=== PATIENT | male | born 1975 | race African-American/Black ===

== ENCOUNTER 2017-08-11 18:32 | Emergency (ER) | payer BC ==
[2017-08-11 19:42] LABS: #Basophils 0.2 thou/uL (0.0-0.2); #Eosinphils 0.3 thou/uL (0.0-0.7); #Monocytes 0.5 thou/uL (0.11-0.59); #Neutrophils 5.1 thou/uL (1.40-6.50); %Basophils 2.5 % (0.0-1.0); %Eosinophils 2.8 % (0.0-10.0); %Lymphocytes 33.3 % (21.0-51.0); %Monocytes 5.9 % (0.0-10.0); Hematocrit 42.5 % (42.0-52.0); Mean Platelet Volume 8.6 fL (7.4-10.4); Red Blood Cell (RBC) Count 5.26 mill/uL (4.70-6.10); White Blood Cell (WBC) Count 9.1 thou/uL (4.8-10.8)
[2017-08-11 19:53] LABS: ALT (SGPT) 36 U/L (8-55); AST (SGOT) 20 U/L (5-34); Alkaline Phosphatase 84 U/L (40-150); Anion Gap 16 mmol/L (10-20); BUN (Urea Nitrogen) 13 mg/dL (8.9-20.6); Bilirubin, Total 0.3 mg/dL (0.2-1.2); Calc. Creatinine Clearance 0 mL/min (70-130); Calcium 8.9 mg/dL (7.8-10.44); Carbon Dioxide 18 mmol/L (22-29); Chloride 106 mmol/L (98-107); Estimated GFR-MDRD Greater than 90; Globulin 3.3 g/dL (2.4-3.5)
[2017-08-11] MEDS ORDERED: Insulin Regular 300 UNITS/3 ML VIAL ONE (20:03)
[2017-08-11 20:35] LABS: Bilirubin Negative (Negative); Blood, Urine Trace (Negative); Glucose, Urine (Dipstick) >=1000 mg/dL (Negative); Ketone, Urine 15 mg/dL (Negative); Nitrite Negative (Negative); Protein, Urine (Dipstick) Negative (Neg-Trace); Urobilinogen 0.2 mg/dL (0.2-1.0)
[2017-08-11 20:36] LABS: RBC/HPF 0-3 HPF (0-3)
[2017-08-11 20:37] LABS: Bacteria/HPF Rare-Few HPF (None Seen)
--- NOTE | 2017-08-11 20:52 | CT ---
CT ABDOMEN AND PELVIS WITHOUT IV CONTRAST: Indication: Left sided flank pain. FINDINGS: The lung bases are clear. There is severe fatty infiltration of the liver. Unopacified spleen, pancreas, and kidneys are normal appearing. No hydronephrosis is evident. No peter al or ureteral calculus is identified. Rectal and perirectal soft tissues are unremarkable. There are phleboliths within the left hemipelvi s. There is a normal appendix in the right lower quadrant. Unopacified large and small bowel appear within normal limits. No drainable fluid collection is evident. No definite acute osseous abnormality is noted. There is a fat containing umbilical hernia. IMPRESSION: 1. Fatty liver. 2. No renal or ureteral calculus. 3. Normal appendix. 4. Fat containing umbilical hernia. POS: [facility]
== END 2017-08-11 20:53 | disposition home or self-care (01) ==
LOC: SCSER 18:32
DX: M54.5 Low back pain (principal); K42.9 Umbilical hernia without obstruction or gangrene; K76.0 Fatty (change of) liver, not elsewhere classified; E11.65 Type 2 diabetes mellitus with hyperglycemia; I10 Essential (primary) hypertension
CPT/HCPCS: 36416; 74176; 80053; 81003; 81015; 85025; 96374; 36415-59; J1815

== ENCOUNTER 2017-09-09 19:56 | Emergency (ER) | payer BC ==
[2017-09-09] MEDS ORDERED: Diazepam 5 MG TAB ONE (20:58)
[2017-09-09 21:06] LABS: Bilirubin Negative (Negative); Blood, Urine Trace (Negative); Glucose, Urine (Dipstick) >=1000 mg/dL (Negative); Ketone, Urine Trace mg/dL (Negative); Nitrite Negative (Negative); Protein, Urine (Dipstick) Negative (Neg-Trace); Urobilinogen 0.2 mg/dL (0.2-1.0)
[2017-09-09 21:11] LABS: RBC/HPF 0-3 HPF (0-3); WBC/HPF 0-3 HPF (0-3)
[2017-09-09 21:12] LABS: Bacteria/HPF Rare-Few HPF (None Seen); Squamous Epithelial 0-3 HPF (0-3)
--- NOTE | 2017-09-09 22:09 | RAD ---
LUMBAR SPINE TWO VIEW 09/09/17 HISTORY: Pain. COMPARISON: None. FINDINGS: There are five nonribbearing lumbar type vertebrae. No acute fracture. No malalignment. No significan t listhesis. No significant degenerative disc space height loss. Mildly distended loop of gas filled sigmoid colon. IMPRESSION: No acute abnormality of the lumbar spine. No significant degenerative disease. POS: [facility]
== END 2017-09-09 23:08 | disposition home or self-care (01) ==
LOC: SCSER 19:56
DX: M62.830 Muscle spasm of back (principal); E78.5 Hyperlipidemia, unspecified; I10 Essential (primary) hypertension; E11.9 Type 2 diabetes mellitus without complications; Z79.4 Long term (current) use of insulin; Z79.899 Other long term (current) drug therapy
CPT/HCPCS: 36416; 72100; 81003; 81015

== ENCOUNTER 2017-12-31 00:44 | Emergency (ER) | payer BC | END 2017-12-31 02:06 | disposition home or self-care (01) | LOC: ERS 00:44 | DX: H60.91 Unspecified otitis externa, right ear (principal); E11.9 Type 2 diabetes mellitus without complications; E78.5 Hyperlipidemia, unspecified; I10 Essential (primary) hypertension | CPT/HCPCS: 99282 ==

== ENCOUNTER 2018-01-20 22:42 | Inpatient (IN) | payer BC ==
[2018-01-20 23:20] LABS: #Basophils 0.2 thou/uL (0.0-0.2); #Eosinphils 0.2 thou/uL (0.0-0.7); #Lymphocytes 2.7 thou/uL (1.20-3.40); #Monocytes 0.6 thou/uL (0.11-0.59); #Neutrophils 3.7 thou/uL (1.40-6.50); %Basophils 2.1 % (0.0-1.0); %Eosinophils 3.1 % (0.0-10.0); %Lymphocytes 36.8 % (21.0-51.0); %Monocytes 7.9 % (0.0-10.0); %Neutrophils 50.1 % (42.0-75.0); Hemoglobin 14.4 g/dL (14.0-18.0); Mean Corpuscular Hemoglobin 27.3 pg (27.0-31.0); Mean Corpuscular Volume 75.9 fl (80.0-94.0); Mean Platelet Volume 8.4 fL (7.4-10.4); Platelet Count 226 thou/uL (130-400); RBC Distribution Width 13.6 % (11.5-14.5); Red Blood Cell (RBC) Count 5.28 mill/uL (4.70-6.10); White Blood Cell (WBC) Count 7.3 thou/uL (4.8-10.8)
[2018-01-20 23:25] LABS: Base Excess-Venous -2.6 mmol/L (0 (+/- 2.5)); Bicarbonate (HCO3v) 20.3 mmol/L (1.0-85.0); CO2 Tension (PvCO2) 29.9 mmHg (41.0-51.0); Calcium, Ionized 1.01 mmol/L (1.12-1.32); Hemoglobin - Calc 15.7 g/dL (12.0-18.0); O2 Tension (PvO2) 89.8 mmHg (35.0-45.0); Potassium 5.3 mmol/L (3.4-4.7); T. Carbon Dioxide 21.2 mmol/L (1.0-85.0); vO2 Saturation-calc 97.4 % (94-98)
--- NOTE | 2018-01-20 23:44 | RAD ---
FRONTAL VIEW CHEST: 01/20/18 COMPARISON: 04/02/15 INDICATION: Altered mental status. FINDINGS: No evidence of consolidation, effusion or pneumothorax. The cardiac silhouette is accentuated by port able technique as well as shallow depth of inspiration. Chest is similar appearing to prior exam. IMPRESSION: Stable chest, without evidence of focal consolidation. POS: [facility]
[2018-01-20 23:50] LABS: CKMB 4.1 ng/mL (0-6.6); Troponin I Less than 0.010 ng/mL (< 0.028)
[2018-01-21 00:14] LABS: Albumin 4.2 g/dL (3.5-5.0)
[2018-01-21 00:15] LABS: Chloride 101 mmol/L (98-107); Potassium 5.7 mmol/L (3.5-5.1); Sodium 132 mmol/L (136-145)
[2018-01-21 00:17] LABS: Globulin 4.5 g/dL (2.4-3.5); Glucose 504 mg/dL (70-105); Protein, Total 8.7 g/dL (6.0-8.3)
[2018-01-21 00:18] LABS: Anion Gap 18 mmol/L (10-20); Bilirubin, Total 0.3 mg/dL (0.2-1.2); Carbon Dioxide 19 mmol/L (22-29)
[2018-01-21 00:19] LABS: Alkaline Phosphatase 101 U/L (40-150)
[2018-01-21 00:20] LABS: Calc. Creatinine Clearance 0 mL/min (70-130); Estimated GFR-MDRD 65
[2018-01-21 00:21] LABS: BUN (Urea Nitrogen) 13 mg/dL (8.9-20.6)
[2018-01-21 00:22] LABS: ALT (SGPT) 44 U/L (8-55); AST (SGOT) 58 U/L (5-34)
[2018-01-21 00:23] LABS: CK (CPK) 202 U/L (30-200); Lipase 93 U/L (8-78)
[2018-01-21 00:42] LABS: Bilirubin Negative (Negative); Blood, Urine Trace (Negative); Clarity CLEAR (Clear); Glucose, Urine (Dipstick) >=1000 mg/dL (Negative); Leukocyte Negative (Negative); Nitrite Negative (Negative); Protein, Urine (Dipstick) Negative (Neg-Trace); Specific Gravity, Urine 1.038 (1.002-1.036); Urobilinogen 0.2 mg/dL (0.2-1.0)
[2018-01-21 00:44] LABS: Bacteria/HPF None Seen HPF (None Seen); Hyaline Casts/LPF 0-3 HYALINE CAST LPF (0-3 Hyaline); Squamous Epithelial None Seen HPF (0-3); WBC/HPF None Seen HPF (0-3)
[2018-01-21] MEDS ORDERED: Insulin Regular 300 UNITS/3 ML VIAL ONE (00:52)
[2018-01-21] MEDS ORDERED: Nitroglycerin 0.4 MG TAB (25 Tab Bottle) PO PRN (01:19)
[2018-01-21] MEDS ORDERED: HYDROcodone/Acetaminophen 5/325 mg Tablet PO PRN (01:19)
[2018-01-21] MEDS ORDERED: Dextrose 5% in Water 1,000 ML IV PRN (01:19)
[2018-01-21] MEDS ORDERED: HumaLOG 300 UNITS/3 ML VIAL SC PRN (01:19)
[2018-01-21] MEDS ORDERED: Dextrose 50% Abboject 50 ML SYRINGE SLOW IVP PRN (01:19)
[2018-01-21] MEDS ORDERED: Ondansetron ODT 4 MG TAB PO PRN (01:19)
[2018-01-21] MEDS ORDERED: Calcium Carbonate 500 MG ChewTAB PO PRN (01:19)
[2018-01-21] MEDS ORDERED: Insulin Detemir 100 UNITS/ML 30 UNITS in Pre-Filled Syringe 1 EACH SC SCH ×2 (01:45→21:00)
[2018-01-21 02:16] LABS: #Basophils 0.1 thou/uL (0.0-0.2); #Eosinphils 0.2 thou/uL (0.0-0.7); #Lymphocytes 2.9 thou/uL (1.20-3.40); #Monocytes 0.7 thou/uL (0.11-0.59); #Neutrophils 3.3 thou/uL (1.40-6.50); %Basophils 1.4 % (0.0-1.0); %Eosinophils 3.1 % (0.0-10.0); %Lymphocytes 39.7 % (21.0-51.0); %Neutrophils 45.8 % (42.0-75.0); Hemoglobin 13.9 g/dL (14.0-18.0); Mean Corpuscular HGB CONC 36.5 g/dL (32.0-36.0); Mean Corpuscular Hemoglobin 27.6 pg (27.0-31.0); Mean Corpuscular Volume 75.7 fl (80.0-94.0); Mean Platelet Volume 8.3 fL (7.4-10.4); Platelet Count 213 thou/uL (130-400); RBC Distribution Width 13.6 % (11.5-14.5); Red Blood Cell (RBC) Count 5.03 mill/uL (4.70-6.10); White Blood Cell (WBC) Count 7.3 thou/uL (4.8-10.8)
--- NOTE | 2018-01-21 02:19 | HP ---
DATE OF ADMISSION: 01/21/2018 CHIEF COMPLAINT: Chest pain. HISTORY OF PRESENT ILLNESS: This is a 42-year-old -[place] male with a known history of type 2 diabetes mellitus. The patient has poor control of blood sugars at home. According to him, he wa s on Victoza in the past and his insurance has changed for the past 3 months and he is now on sliding scale insulin at home which according to him was not working well and always his sugars in 300s to 3 50s. Also, he has a very stressful job currently where he does not have any physical activity which according to him is contributing to the high blood sugars. Today morning, he noticed a sudden onset of chest pain going across his chest and he feels a lot of stress and he was worried about it and he came to the ER. His chest pain was not associated with any nausea. No radiation of the pain. It is more in the center of the chest. He denies having any history of gastric problems in the past or an y GERD. The patient is a nonsmoker. No history of alcohol. Currently, his blood sugars were in 500 s and he received 10 units of insulin in the ER and his sugars are still in 470s. He took metformin in the past, but because of the fear of renal failure which happened to his grandmother, he refused t o take metformin and also complaining of severe weight gain. PAST MEDICAL HISTORY: 1. Type 2 diabetes mellitus. 2. Hyperlipidemia. 3. Hypertension. PAST SURGICAL HISTORY: None. SOCIAL HISTORY: Patient is not a known smoker. No history of alcohol, no history of illicit drug us e. FAMILY HISTORY: No significant family history of coronary artery disease or any premature deaths in the family. ALLERGIES: SULFA AND MAGNESIUM. HOME MEDICATIONS: The patient is on simvastatin 10 mg p.o. daily and he is on sliding scale insulin, which is not listed here. REVIEW OF SYSTEMS: All 12 systems are reviewed with the patient thoroughly and found to be negative at this time. Systems reviewed are HEENT, CVS, PLUMBER'S ASSISTANT, respiratory, GI, , musculoskeletal, skin, inte gument, and psychiatric. The following complete review of systems was negative, unless otherwise men tioned in the HPI or below: Constitutional: Weight loss or gain, sense of well-being, ability to co nduct usual activities, exercise tolerance. Skin/Breast: Rash, itching, changes in hair growth or l oss, nail changes, breast lumps, tenderness, swelling, nipple discharge. Eyes: Vision, double visio n, tearing, blind spots, pain. ENT/Mouth: Headaches (location, time of onset, duration, precipitati ng factors), vertigo, lightheadedness, injury. Vision, double vision, tearing, blind spots, pain, nos e bleeding, colds, obstruction, discharge, dental difficulties, gingival bleeding, dentures, neck sti ffness, pain, tenderness, masses in thyroid or other areas. Cardiovascular: Precordial pain, subste rnal distress, palpitations, syncope, dyspnea on exertion, orthopnea, nocturnal paroxysmal dyspnea, e alka, cyanosis, hypertension, heart murmurs, varicosities, phlebitis, claudication. Respiratory: Pa in, shortness of breath, wheezing, stridor, cough, hemoptysis, fever or night sweats. Gastrointestin al: Poor appetite, dysphagia, indigestion, abdominal pain, heartburn, eructation, nausea, vomiting, hematemesis, jaundice, constipation, or diarrhea, abnormal stools (xenia-colored, tarry, bloody, greas y, foul smelling), flatulence, hemorrhoids, recent changes in bowel habits. Genitourinary: Urgency, frequency, dysuria, nocturia, hematuria, polyuria, oliguria, unusual (or change in) color of urine, stones, hesitancy, change in size of stream, dribbling, acute retention or incontinence, libido, pote ncy. Musculoskeletal: Pain, swelling, redness or heat of muscles or joints, limitation, of motion, muscular weakness, atrophy, cramps. Neurologic/Psychiatric: Convulsions, paralyses, tremor, incoordination, parasthesias, difficulties w ith memory of speech, sensory or motor disturbances, or muscular coordination (ataxia, tremor), emoti onal problems, anxiety, depression, previous psychiatric care, unusual perceptions, hallucinations. Allergy/Immunologic: Skin rash, anemia, bleeding tendency, polydipsia, polyuria, intolerance to heat or cold. PHYSICAL EXAMINATION: VITAL SIGNS: Blood pressures were 128/78, respiratory rate is 18, saturation is 96% on room air. GENERAL: The patient is moderately built and moderately nourished. He does not appear to be in acut e distress. CARDIOVASCULAR: S1, S2 normal. No murmurs, rubs or gallops. HEENT: Atraumatic, normocephalic. PERRLA. Extraocular movements were intact. NECK: No thyromegaly, no JVD, no lymphadenopathy was noted. LUNGS: Bilateral air entry was equal. No wheezing, no crackles. ABDOMEN: Soft, nontender, no guarding, no rebound tenderness. Bowel sounds normal. MUSCULOSKELETAL: No calf tenderness. No pedal edema. EXTREMITIES: No joint tenderness, no joint swelling. SKIN: No cyanosis, no erythema, no rash, no pallor. PSYCHIATRIC: No signs of suicidal ideation. No signs of maria m were noted. LABORATORY DATA: WBC 7.3, hemoglobin 14.4, hematocrit is 40.1, platelets 226. Sodium is 132, potass ium 5.7, chloride 101, blood sugar 504, BUN 13, creatinine 1.44. IMAGING: Chest x-ray was done showing no evidence of any acute cardiopulmonary process. ASSESSMENT: 1. Acute coronary syndrome. 2. Acute hyperglycemia with type 2 diabetes mellitus. 3. Hyperkalemia. 4. Hyponatremia secondary to relative hyperglycemia. 5. Hypertension. 6. Hyperlipidemia. PLAN: 1. Plan is to closely monitor this patient. Has a chest pain secondary to severe stress from the edward b and poorly controlled type 2 diabetes mellitus. We will get a nuclear stress test tomorrow if the serial troponins remain negative. We will start the patient on aspirin and beta beatrice and continue on the home medications on statins. We will get a lipid profile in the morning. 2. The patient has poorly-controlled blood sugars. We will start the patient on sliding scale insul in and we will put him on Levemir 30 units and may need to be given as a prescription for outpatient management. 3. The patient has poorly-controlled blood sugars. We will get a relationship assoc to explain about his diabetes and diabetic food. 4. Hypertension, well controlled. We will restart the patient's home medications. We will start e patient on lisinopril for renal protection. 5. Hyperlipidemia. We will restart the patient's home medications. 6. Deep venous thrombosis prophylaxis. Lovenox 40 mg. I spent 75 minutes with this patient.
[2018-01-21 02:35] LABS: Troponin I Less than 0.010 ng/mL (< 0.028)
[2018-01-21 02:58] LABS: Triglycerides 1182 mg/dL (Less than 150)
[2018-01-21 04:20] LABS: Anion Gap 13 mmol/L (10-20); BUN (Urea Nitrogen) 14 mg/dL (8.9-20.6); Calc. Creatinine Clearance 139 mL/min (70-130); Calcium 8.8 mg/dL (7.8-10.44); Carbon Dioxide 19 mmol/L (22-29); Cardiac Risk 9.1 (Less than 4.5); Chloride 103 mmol/L (98-107); Cholesterol 192 mg/dl (< 200 Desired); Estimated GFR-MDRD 89; Glucose 368 mg/dL (70-105); HDL Cholesterol 21 mg/dL (>60 Neg Risk); Potassium 5.3 mmol/L (3.5-5.1); Sodium 133 mmol/L (136-145)
[2018-01-21 06:34] LABS: Troponin I Less than 0.010 ng/mL (< 0.028)
[2018-01-21] MEDS: Acetaminophen 325 MG TAB PO PRN ×2 (07:59→21:28)
[2018-01-21] MEDS ORDERED: glyBURIDE 5 MG TAB PO SCH (08:00)
[2018-01-21] MEDS ORDERED: metFORMIN 500 MG TAB PO SCH (08:00)
[2018-01-21] MEDS: Docusate 100 MG CAP PO SCH ×2 (08:01→21:27)
[2018-01-21] MEDS ORDERED: Lisinopril 2.5 MG TAB PO SCH (09:00)
[2018-01-21] MEDS ORDERED: Aspirin 325 MG TAB PO SCH (09:00)
[2018-01-21] MEDS ORDERED: Liraglutide [Victoza 2-Pak] 1.8 MG SC SCH ×2 (09:00)
[2018-01-21] MEDS ORDERED: Simvastatin 20 MG TAB PO SCH (09:00)
[2018-01-21] MEDS ORDERED: Carvedilol 3.125 MG TAB PO SCH (09:00)
--- NOTE | 2018-01-21 09:08 | PDOC.PN ---
- Subjective Encounter Start Date: 01/21/18 Encounter Start Time: 07:55 -: old records requested/rev Patient seen and examined. No new complaints. No overnight events - Objective Resuscitation Status: Resuscitation Status FULL:Full Resuscitation MAR Reviewed: Yes Vital Signs & Weight: Vital Signs (12 hours) Temp Pulse Resp BP Pulse Ox 01/21/18 07:53 97.6 F 83 16 120/69 96 01/21/18 04:36 97 01/21/18 04:00 98.5 F 88 16 132/76 97 01/21/18 01:20 98.4 F 97 16 141/83 H 95 Weight Weight 245 lb 9.6 oz I&O: 01/20/18 01/21/18 01/22/18 06:59 06:59 06:59 Intake Total 360 Output Total 1600 Balance -1240 Result Diagrams: 01/21/18 02:01 01/21/18 02:01 Additional Labs: Accuchecks 01/21/18 01/21/18 06:04 02:40 POC Glucose 320 H 354 H EKG Reviewed by me: Yes (nsr) Phys Exam - Physical Examination Constitutional: NAD HEENT: PERRLA, moist MMs, sclera anicteric Neck: no JVD, supple Respiratory: no wheezing, no rales, no rhonchi Cardiovascular: RRR, no significant murmur, no rub Gastrointestinal: soft, non-tender, no distention, positive bowel sounds Musculoskeletal: no edema, pulses present Neurological: non-focal, normal sensation, moves all 4 limbs Lymphatic: no nodes Psychiatric: normal affect, A&O x 3 Skin: no rash, normal turgor Dx/Plan (1) Acute kidney injury Code(s): N17.9 - ACUTE KIDNEY FAILURE, UNSPECIFIED Status: Acute (2) Chest pain Code(s): R07.9 - CHEST PAIN, UNSPECIFIED Status: Acute (3) Hyperkalemia Code(s): E87.5 - HYPERKALEMIA Status: Acute (4) Hyponatremia Code(s): E87.1 - HYPO-OSMOLALITY AND HYPONATREMIA Status: Acute (5) Diabetes type 2, uncontrolled Code(s): E11.65 - TYPE 2 DIABETES MELLITUS WITH HYPERGLYCEMIA Status: Chronic (6) Hypertension Code(s): I10 - ESSENTIAL (PRIMARY) HYPERTENSION Status: Chronic (7) Hypertriglyceridemia Code(s): E78.1 - PURE HYPERGLYCERIDEMIA Status: Chronic (8) Obesity (BMI 30.0-34.9) Code(s): E66.9 - OBESITY, UNSPECIFIED Status: Chronic - Plan cont current plan of care * today stress test * I have reconciled his home medication * will adjust medication and control diabetes today. * plan for discharge tomorrow if stable * medication reviewed as below * symptomatic treatment * repeat labs tomorrow Review of Systems - Review of Systems Eyes: negative: Pain, Vision Change, Conjunctivae Inflammation, Eyelid Inflammation, Redness, Other ENT: negative: Ear Pain, Ear Discharge, Nose Pain, Nose Discharge, Nose Congestion, Mouth Pain, Mouth Swelling, Throat Pain, Throat Swelling, Other Respiratory: negative: Cough, Dry, Shortness of Breath, Hemoptysis, SOB with Excertion, Pleuritic Pain, Sputum, Wheezing Cardiovascular: negative: chest pain, palpitations, orthopnea, paroxysmal nocturnal dyspnea, edema, light headedness, other Gastrointestinal: negative: Nausea, Vomiting, Abdominal Pain, Diarrhea, Constipation, Melena, Hematochezia, Other Genitourinary: negative: Dysuria, Frequency, Incontinence, Hematuria, Retention , Other Musculoskeletal: negative: Neck Pain, Shoulder Pain, Arm Pain, Back Pain, Hand Pain, Leg Pain, Foot Pain, Other Skin: negative: Rash, Lesions, Mark, Bruising, Other - Medications/Allergies Allergies/Adverse Reactions: Allergies Allergy/AdvReac Type Severity Reaction Status Date / Time iodine Allergy Verified 01/21/18 01:57 shellfish derived Allergy Verified 01/21/18 01:57 Medications: Current Medications Acetaminophen (Tylenol) 650 mg PO Q4H PRN PRN Reason: Headache/Fever or Pain Last Admin: 01/21/18 07:59 Dose: 650 mg Hydrocodone Bitart/Acetaminophen ([place] 5/325) 1 tab PO Q4H PRN PRN Reason: Moderate Pain (4-6) Aspirin (Ecotrin) 81 mg PO DAILY [facility] Calcium Carbonate (Tums) 1,000 mg PO Q4H PRN PRN Reason: Heartburn or Indigestion Dextrose/Water (Dextrose 50%) 25 gm SLOW IVP PRN PRN PRN Reason: Hypoglycemia Docusate Sodium (Colace) 100 mg PO BID ON LICENSE OF [facility] Last Admin: 01/21/18 08:01 Dose: Not Given Enoxaparin Sodium (Lovenox) 40 mg SC 0900 ON LICENSE OF [facility] Glucagon (Glucagon) 1 mg IM PRN PRN PRN Reason: Hypoglycemia Dextrose/Water (D5w) 1,000 mls @ 0 mls/hr IV .Q0M PRN; As Directed PRN Reason: Hypoglycemia Insulin Human Lispro (Humalog) 0 units SC .MODERATE SLIDING SC PRN PRN Reason: Moderate Correctional Scale Insulin Human Lispro (Humalog) 0 units SC .BEDTIME SLIDING SC PRN PRN Reason: Bedtime Correctional Scale Insulin Human Lispro (Humalog) units SC QID-WM ON LICENSE OF [facility] Losartan Potassium (Cozaar) 25 mg PO DAILY ON LICENSE OF [facility] Loteprednol Etabonate (Lotemax 0.5% Ophth Suspension) 1 drop EA EYE QID [facility] Nitroglycerin (Nitrostat) 0.4 mg PO Q5MIN PRN PRN Reason: Chest Pain Non-Formulary Medication (Codeine Phosphate/Guaifenesin [Virtussin Ac Liquid]) 5 ml PO QID PRN PRN Reason: Cough Non-Formulary Medication (Fenofibrate [Fenofibrate]) 160 mg PO DAILY [facility] Non-Formulary Medication (Pravastatin Sodium [Pravastatin Sodium]) 80 mg PO HS [facility] Ondansetron HCl (Zofran Odt) 4 mg PO Q6H PRN PRN Reason: Nausea/Vomiting Liraglutide [Victoza (2-Jovon] 1.8 Mg) 1.8 each SC DAILY [facility] Polymyxin/Trimethoprim Sulfate (Polytrim 0.1% Opth) 1 drop EA EYE QID [facility]
[2018-01-21] MEDS ORDERED: guaiFENesin/Codeine Phosphate 200 mg/20 mg 10 ml UD Cup PO PRN (10:07)
[2018-01-21] MEDS: Enoxaparin Sodium 40 MG/0.4 ML SYRINGE SC SCH (12:43)
[2018-01-21] MEDS: Losartan 25 MG TAB PO SCH (12:44)
[2018-01-21] MEDS: HumaLOG 300 UNITS/3 ML VIAL SC SCH ×3 (12:44→21:28)
[2018-01-21] MEDS: Loteprednol Etabonate 0.5% Ophth Suspension 5 ml Bottle EA EYE SCH ×3 (12:45→22:41)
[2018-01-21] MEDS ORDERED: TRIMETHOPRIM EA EYE SCH (13:00)
[2018-01-21] MEDS ORDERED: POLYMYXIN B SULFATE FS SCH (13:00)
[2018-01-21] MEDS ORDERED: TRIMETHOPRIM FS SCH (13:00)
[2018-01-21] MEDS ORDERED: POLYMYXIN B EA EYE SCH (13:00)
[2018-01-21] MEDS: Fenofibrate Nanocrystallized 145 MG TAB PO SCH (13:09)
[2018-01-21 13:23] VITALS: BMI 34.2
--- NOTE | 2018-01-21 13:32 | NM ---
NUCLEAR MEDICINE CARDIAC PERFUSION EXAMINATION WITH EJECTION FRACTION: HISTORY: 42-year-old male with chest pain, hypertension, diabetes, and hyperlipidemia. COMPARISON: 04/03/15. TECHNIQUE: A single day nuclear medicine cardiac perfusion examination was performed. Rest images were obtained using 10.2 mCi of technetium-99m sestamibi. Stress images were obtained using 31 mCi of technetium-99 m sestamibi. This was given at the peak of exercise on a treadmill using Jonathon protocol. The patient achieved greater than 85% maximum predicted heart rate. FINDINGS: Tomographic images show no fixed or reversible perfusion defects. Gated images show normal wall motio n with an ejection fraction of 56%. EDV: 110 ml LHR: 0.4 TID: 0.9 IMPRESSION: No evidence of ischemia. POS: [facility]
[2018-01-21] MEDS: HumaLOG 300 UNITS/3 ML VIAL SC PRN ×2 (17:26→21:29)
[2018-01-21] MEDS: Atorvastatin Calcium 20 MG TAB PO SCH (21:28)
[2018-01-22 07:55] LABS: ALT (SGPT) 36 U/L (8-55); AST (SGOT) 19 U/L (5-34); Albumin 3.8 g/dL (3.5-5.0); Alkaline Phosphatase 88 U/L (40-150); Anion Gap 16 mmol/L (10-20); BUN (Urea Nitrogen) 16 mg/dL (8.9-20.6); Bilirubin, Total 0.3 mg/dL (0.2-1.2); Calc. Creatinine Clearance 183 mL/min (70-130); Calcium 9.3 mg/dL (7.8-10.44); Carbon Dioxide 18 mmol/L (22-29); Chloride 107 mmol/L (98-107); Estimated GFR-MDRD Greater than 90; Globulin 3.8 g/dL (2.4-3.5); Glucose 161 mg/dL (70-105); Potassium 3.5 mmol/L (3.5-5.1); Protein, Total 7.6 g/dL (6.0-8.3); Sodium 137 mmol/L (136-145)
[2018-01-22 08:15] LABS: #Basophils 0.1 thou/uL (0.0-0.2); #Eosinphils 0.4 thou/uL (0.0-0.7); #Lymphocytes 2.5 thou/uL (1.20-3.40); #Monocytes 0.5 thou/uL (0.11-0.59); #Neutrophils 2.8 thou/uL (1.40-6.50); %Basophils 2.3 % (0.0-1.0); %Lymphocytes 38.9 % (21.0-51.0); %Monocytes 7.4 % (0.0-10.0); %Neutrophils 44.5 % (42.0-75.0); Hemoglobin 14.8 g/dL (14.0-18.0); Mean Corpuscular HGB CONC 35.4 g/dL (32.0-36.0); Mean Corpuscular Hemoglobin 27.5 pg (27.0-31.0); Mean Corpuscular Volume 77.8 fl (80.0-94.0); Platelet Count 227 thou/uL (130-400); RBC Distribution Width 13.7 % (11.5-14.5); Red Blood Cell (RBC) Count 5.38 mill/uL (4.70-6.10); White Blood Cell (WBC) Count 6.4 thou/uL (4.8-10.8)
[2018-01-22 08:29] LABS: Hemoglobin A1c 11.5 % (4.0-6.0)
[2018-01-22] MEDS: HumaLOG 300 UNITS/3 ML VIAL SC SCH ×4 (08:43→20:37)
[2018-01-22] MEDS: Enoxaparin Sodium 40 MG/0.4 ML SYRINGE SC SCH (08:44)
[2018-01-22] MEDS: Losartan 25 MG TAB PO SCH (08:44)
[2018-01-22] MEDS: Fenofibrate Nanocrystallized 145 MG TAB PO SCH (08:44)
[2018-01-22] MEDS: Aspirin 81 mg Enteric Coated Tablet PO SCH (08:44)
[2018-01-22] MEDS: Loteprednol Etabonate 0.5% Ophth Suspension 5 ml Bottle EA EYE SCH ×4 (08:45→20:50)
[2018-01-22] MEDS: Docusate 100 MG CAP PO SCH ×2 (08:45→20:36)
[2018-01-22] MEDS: Acetaminophen 325 MG TAB PO PRN ×2 (08:56→14:46)
--- NOTE | 2018-01-22 09:14 | PDOC.PN ---
- Subjective Encounter Start Date: 01/22/18 Encounter Start Time: 07:30 this morning pt was c/o nausea and had one vomiting, no chest pain, but has vague abdominal discomfort Patient seen and examined. No new complaints. No overnight events - Objective Resuscitation Status: Resuscitation Status FULL:Full Resuscitation MAR Reviewed: Yes Vital Signs & Weight: Vital Signs (12 hours) Temp Pulse Resp BP BP Pulse Ox 01/22/18 07:34 98.5 F 100 17 144/89 H 95 01/22/18 06:47 97 01/22/18 03:55 98.3 F 91 17 137/89 96 01/22/18 00:00 98.7 F 95 18 131/78 97 01/21/18 21:28 98.9 F 97 16 Weight Admit Weight 246 lb 14.4 oz Weight 246 lb 4.8 oz I&O: 01/21/18 01/22/18 01/23/18 06:59 06:59 06:59 Intake Total 360 1940 Output Total 1600 1050 Balance -1240 890 Result Diagrams: 01/22/18 03:30 01/22/18 06:13 Additional Labs: Accuchecks 01/22/18 01/21/18 01/21/18 06:18 23:37 20:46 POC Glucose 150 H 284 H 287 H 01/21/18 01/21/18 16:57 11:53 POC Glucose 419 H 340 H Radiology Reviewed by me: Yes (stress test negative) EKG Reviewed by me: Yes (nsr) Phys Exam - Physical Examination Constitutional: NAD HEENT: PERRLA, moist MMs, sclera anicteric Neck: no JVD, supple Respiratory: no wheezing, no rales, no rhonchi Cardiovascular: RRR, no significant murmur, no rub Gastrointestinal: soft, non-tender, no distention, positive bowel sounds Musculoskeletal: no edema, pulses present Neurological: non-focal, normal sensation, moves all 4 limbs Psychiatric: normal affect, A&O x 3 Skin: no rash, normal turgor Dx/Plan (1) Acute kidney injury Code(s): N17.9 - ACUTE KIDNEY FAILURE, UNSPECIFIED Status: Resolved (2) Chest pain Code(s): R07.9 - CHEST PAIN, UNSPECIFIED Status: Resolved (3) Hyperkalemia Code(s): E87.5 - HYPERKALEMIA Status: Resolved (4) Hyponatremia Code(s): E87.1 - HYPO-OSMOLALITY AND HYPONATREMIA Status: Resolved (5) Diabetes type 2, uncontrolled Code(s): E11.65 - TYPE 2 DIABETES MELLITUS WITH HYPERGLYCEMIA Status: Chronic (6) Hypertension Code(s): I10 - ESSENTIAL (PRIMARY) HYPERTENSION Status: Chronic (7) Hypertriglyceridemia Code(s): E78.1 - PURE HYPERGLYCERIDEMIA Status: Chronic (8) Obesity (BMI 30.0-34.9) Code(s): E66.9 - OBESITY, UNSPECIFIED Status: Chronic - Plan cont current plan of care * DC tele * transfer to medical * will check lipase and TG * medication reviewed as below * symptomatic treatment * discharge soon. Review of Systems - Review of Systems Constitutional: negative: fever, chills, sweats, weakness, malaise, other Eyes: negative: Pain, Vision Change, Conjunctivae Inflammation, Eyelid Inflammation, Redness, Other ENT: negative: Ear Pain, Ear Discharge, Nose Pain, Nose Discharge, Nose Congestion, Mouth Pain, Mouth Swelling, Throat Pain, Throat Swelling, Other Respiratory: negative: Cough, Dry, Shortness of Breath, Hemoptysis, SOB with Excertion, Pleuritic Pain, Sputum, Wheezing Cardiovascular: negative: chest pain, palpitations, orthopnea, paroxysmal nocturnal dyspnea, edema, light headedness, other Gastrointestinal: Nausea, Vomiting, Abdominal Pain. negative: Diarrhea, Constipation, Melena, Hematochezia, Other Genitourinary: negative: Dysuria, Frequency, Incontinence, Hematuria, Retention , Other Musculoskeletal: negative: Neck Pain, Shoulder Pain, Arm Pain, Back Pain, Hand Pain, Leg Pain, Foot Pain, Other Skin: negative: Rash, Lesions, Mark, Bruising, Other - Medications/Allergies Allergies/Adverse Reactions: Allergies Allergy/AdvReac Type Severity Reaction Status Date / Time iodine Allergy Verified 01/21/18 01:57 shellfish derived Allergy Verified 01/21/18 01:57 Medications: Current Medications Acetaminophen (Tylenol) 650 mg PO Q4H PRN PRN Reason: Headache/Fever or Pain Last Admin: 01/22/18 08:56 Dose: 650 mg Hydrocodone Bitart/Acetaminophen ([place] 5/325) 1 tab PO Q4H PRN PRN Reason: Moderate Pain (4-6) Aspirin (Ecotrin) 81 mg PO DAILY [facility] Last Admin: 01/22/18 08:44 Dose: 81 mg Atorvastatin Calcium (Lipitor) 20 mg PO HS [facility] Last Admin: 01/21/18 21:28 Dose: 20 mg Calcium Carbonate (Tums) 1,000 mg PO Q4H PRN PRN Reason: Heartburn or Indigestion Last Admin: 01/22/18 08:56 Dose: 1,000 mg Dextrose/Water (Dextrose 50%) 25 gm SLOW IVP PRN PRN PRN Reason: Hypoglycemia Docusate Sodium (Colace) 100 mg PO BID [facility] Last Admin: 01/22/18 08:45 Dose: Not Given Enoxaparin Sodium (Lovenox) 40 mg SC 0900 [facility] Last Admin: 01/22/18 08:44 Dose: 40 mg Fenofibrate (Tricor) 145 mg PO DAILY [facility] Last Admin: 01/22/18 08:44 Dose: 145 mg Glucagon (Glucagon) 1 mg IM PRN PRN PRN Reason: Hypoglycemia Guaifenesin/Codeine Phosphate (Robitussin Ac) 5 ml PO QID PRN PRN Reason: Cough Dextrose/Water (D5w) 1,000 mls @ 0 mls/hr IV .Q0M PRN; As Directed PRN Reason: Hypoglycemia Insulin Human Lispro (Humalog) 0 units SC .MODERATE SLIDING SC PRN PRN Reason: Moderate Correctional Scale Last Admin: 01/21/18 21:29 Dose: 6 unit Insulin Human Lispro (Humalog) 0 units SC .BEDTIME SLIDING SC PRN PRN Reason: Bedtime Correctional Scale Insulin Human Lispro (Humalog) 10 units SC QID-[facility] Last Admin: 01/22/18 08:43 Dose: 10 unit Losartan Potassium (Cozaar) 25 mg PO DAILY [facility] Last Admin: 01/22/18 08:44 Dose: 25 mg Loteprednol Etabonate (Lotemax 0.5% Ophth Suspension) 1 drop EA EYE QID [facility] Last Admin: 01/22/18 08:45 Dose: 1 drp Nitroglycerin (Nitrostat) 0.4 mg PO Q5MIN PRN PRN Reason: Chest Pain Polymyxin B Sulfate/ (Tmp 200 Ophth D) 0 each FS QID [facility] Ondansetron HCl (Zofran Odt) 4 mg PO Q6H PRN PRN Reason: Nausea/Vomiting Last Admin: 01/22/18 07:14 Dose: 4 mg Liraglutide [Victoza (2-Jovon] 1.8 Mg) 1.8 each SC DAILY [facility]
[2018-01-22 10:42] LABS: Lipase 85 U/L (8-78)
[2018-01-22 10:50] LABS: Triglycerides 1500 mg/dL (Less than 150)
--- NOTE | 2018-01-22 11:07 | DIS ---
DATE OF ADMISSION: 01/21/2018 DATE OF DISCHARGE: 01/22/2018 PRIMARY CARE PHYSICIAN: [facility] call admission. DISCHARGE DISPOSITION: Home. PRIMARY DISCHARGE DIAGNOSES: 1. Chest pain, ruled out acute coronary syndrome. 2. Hyperkalemia, resolved. 3. Acute kidney failure, improved. SECONDARY DISCHARGE DIAGNOSES: 1. Diabetes type 2, uncontrolled. 2. Hypertension. 3. Hypertriglyceridemia. 4. Obesity with BMI 34. PRIMARY PROCEDURE AND OPERATION: None. RADIOLOGICAL INVESTIGATION: Chest x-ray normal, stress test negative for any ischemia. SIGNIFICANT LABORATORY DATA: WBC 6.4, hemoglobin 14.8, platelet 227. Sodium 137, potassium 3.5, BUN 16, creatinine 0.83, calcium 9.3, hemoglobin A1c 11.5. Liver enzymes normal. LDL test not performe d. Triglyceride on admission was 1182, lipase 85. DISCHARGE MEDICATIONS: Aspirin 81 mg p.o. daily, fenofibrate 160 mg p.o. daily, Humalog insulin as p er sliding scale, Victoza 1.8 mg subcutaneously b.i.d., losartan 25 mg p.o. daily, Lotemax ophthalmic drops each eye q.i.d., pravastatin 80 mg p.o. at bedtime. CONTRAINDICATIONS: None. CODE STATUS: FULL CODE. INPATIENT CONSULTANTS: None. ALLERGIES: IODINE and SHELLFISH. DISCHARGE PLAN: Post hospital, the patient is instructed to follow with primary care physician in 1 week. The patient is instructed about diet while in the hospital, given importance of compliance wit h medical therapy as well as diet and patient is also educated about monitoring blood sugar at home a nd follow up with primary care physician for adjustment of medication. HOSPITAL COURSE: A 42-year-old male with above-mentioned medical problem who was admitted by Dr. John morrell. Please see his H&P for further details. The patient was having chest pain. His EKG was unremar kable. We did stress test and that came back negative. He had serial cardiac enzymes that were nega tive. Telemetry remained unremarkable. His chest pain description was noncardiac, nonanginal. In t his way, we have completely ruled out acute coronary syndrome. While in hospital, he was having hyperglycemia. We are suspecting noncompliance with the treatment. He also has hypertriglyceridemia. His hemoglobin A1c is 11.5 and his triglyceride level is above 10 00. He was complaining of nausea and vomiting and we are suspecting early pancreatitis. His lipase was also elevated. We provided patient counseling about diet as well as medication compliance. Ioana ent does have all his home medication. At this point, the patient is medically stable for discharge, but the patient needs close outpatient followup appointment for further adjustment of his blood suga r medication. The patient is seen and examined at bedside today. Please see my progress note from today for furthe r detail.
[2018-01-22] MEDS: HumaLOG 300 UNITS/3 ML VIAL SC PRN ×3 (12:07→20:38)
[2018-01-22] MEDS ORDERED: Artificial Tears 18 DROP/0.9 ML EA EYE PRN (12:36)
[2018-01-22] MEDS ORDERED: Sodium Chloride 0.65% Nasal 44 ML BOT EA NARE PRN (12:36)
[2018-01-22] MEDS ORDERED: Ondansetron HCl/PF 4 MG/2 ML Vial IVP PRN (12:36)
[2018-01-22] MEDS ORDERED: Diabetic Tussin 200 MG/10 ML UDCUP PO PRN (12:36)
[2018-01-22] MEDS ORDERED: Senokot 8.6 MG TAB PO PRN (12:36)
[2018-01-22] MEDS ORDERED: Eucerin (Mineral Oil/Petrolatum,White) 30 gm Jar TOP PRN (12:36)
[2018-01-22] MEDS ORDERED: Chloraseptic Spray 180 ml Bottle PO PRN (12:36)
[2018-01-22] MEDS ORDERED: hydrALAZINE 20 MG/ML VIAL SLOW IVP PRN (12:36)
[2018-01-22] MEDS ORDERED: Temazepam 15 MG CAP PO PRN (12:36)
[2018-01-22] MEDS ORDERED: Loratadine 10 MG TAB PO PRN (12:36)
[2018-01-22] MEDS ORDERED: Milk Of Magnesia 30 ML UDCUP PO PRN (12:36)
[2018-01-22] MEDS ORDERED: Loperamide HCl 2 MG CAP PO PRN (12:36)
[2018-01-22] MEDS: Sodium Chloride 0.9% 1,000 ML IV SCH ×2 (13:15→20:38)
[2018-01-22] MEDS: Atorvastatin Calcium 20 MG TAB PO SCH (20:36)
[2018-01-22] MEDS: Famotidine 20 MG TAB PO SCH (20:36)
[2018-01-23] MEDS: Sodium Chloride 0.9% 1,000 ML IV SCH (04:45)
[2018-01-23] MEDS: HumaLOG 300 UNITS/3 ML VIAL SC PRN (06:27)
--- NOTE | 2018-01-23 08:48 | ULT ---
ULTRASOUND ABDOMEN LIMITED: (RIGHT UPPER QUADRANT) HISTORY: 42-year old male with nausea, emesis, and elevated serum lipase. FINDINGS: The gallbladder has normal wall thickness and has no evidence of gallstones. There is sludge in the g allbladder. The hepatic echogenicity is diffusely increased, consistent with fatty liver. The right kidney has normal echogenicity and has no hydronephrosis. The pancreas is obscured by bowel gas. T here is no biliary dilation. The common duct caliber is 6 mm. IMPRESSION: 1) Hepatic steatosis. 2) Pancreas not visualized. 3) No evidence of acute cholecystitis. roberth Jacobson POS: [facility]
[2018-01-23 08:53] VITALS: BP 114/64; TEMP 99.2
[2018-01-23] MEDS: HumaLOG 300 UNITS/3 ML VIAL SC SCH (08:58)
[2018-01-23] MEDS: Aspirin 81 mg Enteric Coated Tablet PO SCH (08:59)
[2018-01-23] MEDS: Docusate 100 MG CAP PO SCH (08:59)
[2018-01-23] MEDS: Famotidine 20 MG TAB PO SCH (08:59)
[2018-01-23] MEDS: Enoxaparin Sodium 40 MG/0.4 ML SYRINGE SC SCH (08:59)
[2018-01-23] MEDS: Losartan 25 MG TAB PO SCH (09:00)
[2018-01-23] MEDS: Loteprednol Etabonate 0.5% Ophth Suspension 5 ml Bottle EA EYE SCH (09:00)
[2018-01-23] MEDS: Fenofibrate Nanocrystallized 145 MG TAB PO SCH (09:00)
--- NOTE | 2018-01-23 10:25 | PDOC.PN ---
- Subjective Encounter Start Date: 01/23/18 Encounter Start Time: 07:00 Patient seen and examined. No new complaints. No overnight events - Objective Resuscitation Status: Resuscitation Status FULL:Full Resuscitation MAR Reviewed: Yes Vital Signs & Weight: Vital Signs (12 hours) Temp Pulse Resp BP BP Pulse Ox 01/23/18 08:00 99.2 F 100 16 114/64 97 01/23/18 03:54 98.0 F 91 16 103/57 L 95 01/22/18 23:58 98.0 F 105 H 16 134/92 H 96 Weight Admit Weight 246 lb 14.4 oz Weight 246 lb 4.8 oz I&O: 01/22/18 01/23/18 01/24/18 06:59 06:59 06:59 Intake Total 1940 3370 Output Total 1050 900 Balance 890 2470 Result Diagrams: 01/22/18 03:30 01/22/18 06:13 Additional Labs: Accuchecks 01/23/18 01/22/18 01/22/18 06:02 20:14 16:53 POC Glucose 247 H 213 H 194 H 01/22/18 10:44 POC Glucose 215 H Radiology Reviewed by me: Yes Phys Exam - Physical Examination Constitutional: NAD HEENT: PERRLA, moist MMs, sclera anicteric Neck: no JVD, supple Respiratory: no wheezing, no rales, no rhonchi Cardiovascular: RRR, no significant murmur, no rub Gastrointestinal: soft, non-tender, no distention, positive bowel sounds Musculoskeletal: no edema, pulses present Neurological: non-focal, normal sensation, moves all 4 limbs Psychiatric: normal affect, A&O x 3 Skin: no rash, normal turgor Dx/Plan (1) Acute kidney injury Code(s): N17.9 - ACUTE KIDNEY FAILURE, UNSPECIFIED Status: Resolved (2) Chest pain Code(s): R07.9 - CHEST PAIN, UNSPECIFIED Status: Resolved (3) Hyperkalemia Code(s): E87.5 - HYPERKALEMIA Status: Resolved (4) Hyponatremia Code(s): E87.1 - HYPO-OSMOLALITY AND HYPONATREMIA Status: Resolved (5) Diabetes type 2, uncontrolled Code(s): E11.65 - TYPE 2 DIABETES MELLITUS WITH HYPERGLYCEMIA Status: Chronic (6) Hypertension Code(s): I10 - ESSENTIAL (PRIMARY) HYPERTENSION Status: Chronic (7) Hypertriglyceridemia Code(s): E78.1 - PURE HYPERGLYCERIDEMIA Status: Chronic (8) Obesity (BMI 30.0-34.9) Code(s): E66.9 - OBESITY, UNSPECIFIED Status: Chronic - Plan cont current plan of care * medication reviewed as below * symptomatic treatment * stable for discharge * US is normal. Review of Systems - Review of Systems Eyes: negative: Pain, Vision Change, Conjunctivae Inflammation, Eyelid Inflammation, Redness, Other ENT: negative: Ear Pain, Ear Discharge, Nose Pain, Nose Discharge, Nose Congestion, Mouth Pain, Mouth Swelling, Throat Pain, Throat Swelling, Other Respiratory: negative: Cough, Dry, Shortness of Breath, Hemoptysis, SOB with Excertion, Pleuritic Pain, Sputum, Wheezing Cardiovascular: negative: chest pain, palpitations, orthopnea, paroxysmal nocturnal dyspnea, edema, light headedness, other Gastrointestinal: negative: Nausea, Vomiting, Abdominal Pain, Diarrhea, Constipation, Melena, Hematochezia, Other Genitourinary: negative: Dysuria, Frequency, Incontinence, Hematuria, Retention , Other Musculoskeletal: negative: Neck Pain, Shoulder Pain, Arm Pain, Back Pain, Hand Pain, Leg Pain, Foot Pain, Other Skin: negative: Rash, Lesions, Mark, Bruising, Other - Medications/Allergies Allergies/Adverse Reactions: Allergies Allergy/AdvReac Type Severity Reaction Status Date / Time iodine Allergy Verified 01/21/18 01:57 shellfish derived Allergy Verified 01/21/18 01:57 Medications: Current Medications Acetaminophen (Tylenol) 650 mg PO Q4H PRN PRN Reason: Headache/Fever or Pain Last Admin: 01/22/18 14:46 Dose: 650 mg Hydrocodone Bitart/Acetaminophen ([place] 5/325) 1 tab PO Q4H PRN PRN Reason: Moderate Pain (4-6) Artificial Tears (Tears Naturale) 0 drop EA EYE PRN PRN PRN Reason: Dry Eyes Aspirin (Ecotrin) 81 mg PO DAILY [facility] Last Admin: 01/23/18 08:59 Dose: 81 mg Atorvastatin Calcium (Lipitor) 20 mg PO HS [facility] Last Admin: 01/22/18 20:36 Dose: 20 mg Calcium Carbonate (Tums) 1,000 mg PO Q4H PRN PRN Reason: Heartburn or Indigestion Last Admin: 01/22/18 08:56 Dose: 1,000 mg Dextrose/Water (Dextrose 50%) 25 gm SLOW IVP PRN PRN PRN Reason: Hypoglycemia Docusate Sodium (Colace) 100 mg PO BID [facility] Last Admin: 01/23/18 08:59 Dose: Not Given Enoxaparin Sodium (Lovenox) 40 mg SC 0900 [facility] Last Admin: 01/23/18 08:59 Dose: 40 mg Famotidine (Pepcid) 20 mg PO BID [facility] Last Admin: 01/23/18 08:59 Dose: 20 mg Fenofibrate (Tricor) 145 mg PO DAILY [facility] Last Admin: 01/23/18 09:00 Dose: 145 mg Glucagon (Glucagon) 1 mg IM PRN PRN PRN Reason: Hypoglycemia Guaifenesin (Robitussin Sf) 200 mg PO Q4H PRN PRN Reason: Cough Guaifenesin/Codeine Phosphate (Robitussin Ac) 5 ml PO QID PRN PRN Reason: Cough Hydralazine HCl (Apresoline) 10 mg SLOW IVP Q4H PRN PRN Reason: Systolic BP > 180 Dextrose/Water (D5w) 1,000 mls @ 0 mls/hr IV .Q0M PRN; As Directed PRN Reason: Hypoglycemia Sodium Chloride (Normal Saline 0.9%) 1,000 mls @ 125 mls/hr IV .Q8H [facility] Last Admin: 01/23/18 04:45 Dose: Not Given Insulin Human Lispro (Humalog) 0 units SC .MODERATE SLIDING SC PRN PRN Reason: Moderate Correctional Scale Last Admin: 01/23/18 06:27 Dose: 4 unit Insulin Human Lispro (Humalog) 0 units SC .BEDTIME SLIDING SC PRN PRN Reason: Bedtime Correctional Scale Insulin Human Lispro (Humalog) 10 units SC QID-[facility] Last Admin: 01/23/18 08:58 Dose: 10 unit Loperamide HCl (Imodium) 2 mg PO PRN PRN PRN Reason: Diarrhea/Loose Stools Loratadine (Claritin) 10 mg PO DAILYPRN PRN PRN Reason: Sinus Symptoms Losartan Potassium (Cozaar) 25 mg PO DAILY [facility] Last Admin: 01/23/18 09:00 Dose: 25 mg Loteprednol Etabonate (Lotemax 0.5% Ophth Suspension) 1 drop EA EYE QID [facility] Last Admin: 01/23/18 09:00 Dose: 1 drp Magnesium Hydroxide (Milk Of Magnesium) 30 ml PO DAILYPRN PRN PRN Reason: Constipation Mineral Oil/White Petrolatum (Eucerin Cream) 0 gm TOP BIDPRN PRN PRN Reason: Dry Skin Nitroglycerin (Nitrostat) 0.4 mg PO Q5MIN PRN PRN Reason: Chest Pain Ondansetron HCl (Zofran Odt) 4 mg PO Q6H PRN PRN Reason: Nausea/Vomiting Last Admin: 01/22/18 07:14 Dose: 4 mg Ondansetron HCl (Zofran) 4 mg IVP Q6H PRN PRN Reason: Nausea/Vomiting Phenol (Chloraseptic [place] 180 Ml Bot) 0 ml PO PRN PRN PRN Reason: Sore Throat Senna (Senokot) 2 tab PO HSPRN PRN PRN Reason: Constipation Sodium Chloride ([place] Nasal [place] 0.65%) 0 ml EA NARE QIDPRN PRN PRN Reason: Nasal Congestion Temazepam (Restoril) 15 mg PO HSPRN PRN PRN Reason: Insomnia
--- NOTE | 2018-01-23 11:33 | ADD-DIS ---
Please see my discharge summary dictated yesterday for further details. The patient was having nausea and episode of vomiting and that is why we have to hold his discharge. We did abdominal ultrasound that showed fatty liver and other tests were unremarkable. Today, we al so checked triglyceride, which is also high, and we suspect it may be early or mild pancreatitis and that is why we instructed the patient to be on full liquid and full liquid diet and avoid greasy food . The patient does not have any abdominal pain today and he does not have any nausea and vomiting. The patient is hemodynamically stable. The patient is strongly emphasized about controlling triglyce ride and diabetes with the help of primary care physician and monitoring blood sugar at home more curt quently and adjust blood sugar medication. There is no change in his discharge medication from my yesterday's discharge summary, everything exac tly same. The patient is seen and examined at bedside today. Please see my progress note from today for furthe r detail.
--- NOTE | 2018-02-17 13:47 | STRESS ---
Acquisition Time: 2018-01-21 09:58:48 Total Exercise Time: 00:09:30 Test Indications: CHEST PAIN Medications: Protocol: MARYA Max HR: 157 BPM 88% of Pred: 178 BPM Max BP: 188/080 mmHG Max Work Load: 11.7 METS THE PATIENT EXERCISED FOR 9:30 ON A MARYA PROTOCOL. PEAK HEART RATE= 155 BPM AND TARGET HEART RATE= 151 BPM. HE DID NOT DEVELOP CHEST PAIN. THERE WAS NO SIGNIFICANT ST DEPRESSION. NORMAL EXERCISE TREADMILL TEST. AWAIT NUCLEAR IMAGES FOR DEFINITIVE DIAGNOSIS. Confirmed by SANFORD REDD ([id number]), food editor JIE NOLAN ([id number]) on 02/17/2018 1:47:23 PM Referred By: MD Gabbi BUSBY Confirmed By:SANFORD REDD
--- NOTE | 2018-03-28 14:28 | EKG ---
Test Reason : Blood Pressure : / mmHG Vent. Rate : 102 BPM Atrial Rate : 102 BPM P-R Int : 162 ms QRS Dur : 084 ms QT Int : 352 ms P-R-T Axes : 055 -25 -02 degrees QTc Int : 458 ms Sinus tachycardia Septal infarct , age undetermined Abnormal ECG Confirmed by MICHAEL CAIN, MISHEL ([id number]), fashion editor CRISTA CELIS ([id number]) on 03/28/2018 2:28:09 PM Referred By: Confirmed By:MISHEL RODRIGUEZ MD
== END 2018-01-23 11:53 | disposition home or self-care (01) | DRG 683 ==
LOC: ERS 22:42 → 2NO 01-21 01:16 → ONC 01-22 19:08
PROVIDERS: ADMIT Family Medicine; ATTEND Family Medicine
DX: N17.9 Acute kidney failure, unspecified (principal); E87.1 Hypo-osmolality and hyponatremia; E11.65 Type 2 diabetes mellitus with hyperglycemia; E78.5 Hyperlipidemia, unspecified; I10 Essential (primary) hypertension; E87.5 Hyperkalemia; E66.9 Obesity, unspecified; Z68.34 Body mass index [BMI] 34.0-34.9, adult; R07.9 Chest pain, unspecified
CPT/HCPCS: 36415; 36416; 71045; 76705; 78452; 80048; 80053; 80061; 81003; 81015; 82010; 82330; 82550; 82553; 82803; 83036; 83690; 83880; 84478; 84484; 85025; 93005; 93017; 94760; 96361; 96374; A9500; J1650; J1815; Q0162

== ENCOUNTER 2018-03-12 14:33 | Emergency (ER) | payer BC ==
[2018-03-12 15:11] LABS: #Basophils 0.2 thou/uL (0.0-0.2); #Eosinphils 0.4 thou/uL (0.0-0.7); #Monocytes 0.5 thou/uL (0.11-0.59); #Neutrophils 4.4 thou/uL (1.40-6.50); %Basophils 2.6 % (0.0-1.0); %Lymphocytes 26.7 % (21.0-51.0); %Monocytes 6.6 % (0.0-10.0); %Neutrophils 58.2 % (42.0-75.0); Hemoglobin 13.9 g/dL (14.0-18.0); Mean Corpuscular HGB CONC 34.9 g/dL (32.0-36.0); Mean Corpuscular Hemoglobin 26.7 pg (27.0-31.0); Mean Corpuscular Volume 76.5 fl (80.0-94.0); Mean Platelet Volume 7.4 fL (7.4-10.4); Platelet Count 274 thou/uL (130-400); RBC Distribution Width 12.8 % (11.5-14.5); Red Blood Cell (RBC) Count 5.18 mill/uL (4.70-6.10); White Blood Cell (WBC) Count 7.5 thou/uL (4.8-10.8)
[2018-03-12 15:20] LABS: ALT (SGPT) 43 U/L (8-55); AST (SGOT) 25 U/L (5-34); Alkaline Phosphatase 84 U/L (40-150); Anion Gap 13 mmol/L (10-20); BUN (Urea Nitrogen) 9 mg/dL (8.9-20.6); Bilirubin, Total 0.3 mg/dL (0.2-1.2); Calc. Creatinine Clearance 0 mL/min (70-130); Calcium 9.4 mg/dL (7.8-10.44); Carbon Dioxide 22 mmol/L (22-29); Chloride 107 mmol/L (98-107); Estimated GFR-MDRD Greater than 90; Globulin 2.9 g/dL (2.4-3.5); Glucose 177 mg/dL (70-105); Potassium 4.1 mmol/L (3.5-5.1); Protein, Total 6.9 g/dL (6.0-8.3); Sodium 138 mmol/L (136-145)
[2018-03-12 16:23] LABS: Bilirubin Negative (Negative); Blood, Urine Trace (Negative); Glucose, Urine (Dipstick) >=1000 mg/dL (Negative); Leukocyte Negative (Negative); Nitrite Negative (Negative); Protein, Urine (Dipstick) 100 mg/dL (Neg-Trace); Specific Gravity, Urine 1.025 (1.005-1.030)
[2018-03-12 16:24] LABS: Bacteria/HPF Rare-Few HPF (None Seen); Clarity Hazy (Clear); RBC/HPF 0-3 HPF (0-3); Squamous Epithelial None Seen HPF (0-3); WBC/HPF None Seen HPF (0-3)
== END 2018-03-12 18:08 | disposition home or self-care (01) ==
LOC: SCSER 14:33
DX: L03.116 Cellulitis of left lower limb (principal); E78.5 Hyperlipidemia, unspecified; I10 Essential (primary) hypertension; E11.9 Type 2 diabetes mellitus without complications; Z79.4 Long term (current) use of insulin
CPT/HCPCS: 36416; 80053; 81003; 81015; 82010; 83605; 85025; 87040; 99283

== ENCOUNTER 2018-05-01 06:00 | Emergency (ER) | payer BC ==
[2018-05-01] MEDS ORDERED: Ondansetron HCl/PF 4 MG/2 ML Vial ONE (06:16)
[2018-05-01 06:32] LABS: #Basophils 0.1 thou/uL (0.0-0.2); #Eosinphils 0.3 thou/uL (0.0-0.7); #Lymphocytes 2.8 thou/uL (1.20-3.40); #Monocytes 0.7 thou/uL (0.11-0.59); %Basophils 0.9 % (0.0-1.0); %Eosinophils 2.8 % (0.0-10.0); %Lymphocytes 28.1 % (21.0-51.0); %Monocytes 7.3 % (0.0-10.0); %Neutrophils 60.9 % (42.0-75.0); Hemoglobin 14.2 g/dL (14.0-18.0); Mean Corpuscular HGB CONC 33.1 g/dL (32.0-36.0); Mean Corpuscular Hemoglobin 25.5 pg (27.0-31.0); Mean Corpuscular Volume 77.1 fL (78.0-98.0); Mean Platelet Volume 8.3 fL (7.4-10.4); Platelet Count 235 thou/uL (130-400); RBC Distribution Width 13.1 % (11.5-14.5); Red Blood Cell (RBC) Count 5.59 mill/uL (4.70-6.10); White Blood Cell (WBC) Count 9.9 thou/uL (4.8-10.8)
[2018-05-01 06:40] LABS: Base Excess-Venous -1.1 mmol/L (0 (+/- 2.5)); Bicarbonate (HCO3v) 23.1 mmol/L (1.0-85.0); CO2 Tension (PvCO2) 36.5 mmHg (41.0-51.0); Calcium, Ionized 1.23 mmol/L (1.12-1.32); Hemoglobin - Calc 15.7 g/dL (12.0-18.0); O2 Tension (PvO2) 53.2 mmHg (35.0-45.0); T. Carbon Dioxide 24.3 mmol/L (1.0-85.0); vO2 Saturation-calc 87.6 % (94-98)
[2018-05-01 06:55] LABS: ALT (SGPT) 52 U/L (8-55); AST (SGOT) 23 U/L (5-34); Albumin 3.9 g/dL (3.5-5.0); Alkaline Phosphatase 96 U/L (40-150); Anion Gap 15 mmol/L (10-20); BUN (Urea Nitrogen) 8 mg/dL (8.9-20.6); Bilirubin, Total 0.6 mg/dL (0.2-1.2); CK (CPK) 325 U/L (30-200); Calc. Creatinine Clearance 0 mL/min (70-130); Calcium 9.2 mg/dL (7.8-10.44); Carbon Dioxide 20 mmol/L (22-29); Chloride 104 mmol/L (98-107); Estimated GFR-MDRD Greater than 90; Globulin 3.2 g/dL (2.4-3.5); Glucose 258 mg/dL (70-105); Lipase 65 U/L (8-78); Potassium 4.1 mmol/L (3.5-5.1); Protein, Total 7.1 g/dL (6.0-8.3); Sodium 135 mmol/L (136-145)
[2018-05-01 07:09] LABS: CKMB 6.1 ng/mL (0-6.6); Troponin I Less than 0.010 ng/mL (< 0.028)
[2018-05-01] MEDS ORDERED: Promethazine HCl 25 MG/ML VIAL ONE (07:10)
--- NOTE | 2018-05-01 07:41 | ULT ---
LEFT LOWER EXTREMITY VENOUS DOPPLER: Date: 05/01/18 HISTORY: Lower extremity pain and edema. COMPARISON: None. TECHNIQUE: Real-time Boykin scale and color Doppler with spectral analysis of the left lower extremity venous sys tem was performed. Common femoral, femoral, proximal portions of greater saphenous and deep femoral v eins, as well as the popliteal and posterior tibial veins were interrogated. FINDINGS: Normal flow, augmentation, and compression. IMPRESSION: No deep venous thrombosis. POS: [facility]
--- NOTE | 2018-05-01 07:46 | RAD ---
AP VIEW CHEST: Date: 05/01/18 INDICATION: Dyspnea. COMPARISON: Prior exam dated 01/20/18. FINDINGS: There is stable mild cardiomegaly. No confluent air space opacity is evident. No pleural effusion is evident. Osseous structures reveal no acute abnormality. IMPRESSION: Stable cardiomegaly. POS: [facility]
[2018-05-01] MEDS ORDERED: methylPREDNISolone Sod Succ/PF 125 MG/2 ML VIAL ONE (08:10)
[2018-05-01] MEDS ORDERED: diphenhydrAMINE 50 MG/ML VIAL ONE (08:10)
[2018-05-01] MEDS ORDERED: Famotidine/PF 20 mg/2ml Vial SLOW IVP SCH (08:30)
--- NOTE | 2018-05-01 09:35 | CT ---
CT ANGIOGRAM CHEST WITH CONTRAST: Date: 05/01/18 HISTORY: Dyspnea. Elevated D-Dimer. FINDINGS: CT angiogram chest performed after the intravenous administration of contrast. 3D rendering is provid ed. Pulmonary trunk size is normal. No proximal segmental pulmonary arterial filling defect. Aortic size is normal. Heart size upper limits of normal. No pericardial effusion. Limited upper abdomen is unremarkable. There is mild interstitial thickening suggesting edema. Mild atelectasis in the lung bases. Lung hypo inflation. There are some faint central lobular ground-glass opacities suggesting edema. No pneumotho rax or large effusion. There is bilateral gynecomastia, mild. No displaced rib fracture. IMPRESSION: 1. No proximal segmental pulmonary arterial filling defect. 2. Mild cardiomegaly and mild early pulmonary edema. 3. No evidence for infection. 4. Mild bilateral gynecomastia. POS: [facility]
[2018-05-01 11:17] LABS: Bilirubin Negative (Negative); Blood, Urine Trace (Negative); Glucose, Urine (Dipstick) 500 mg/dL (Negative); Leukocyte Negative (Negative); Nitrite Negative (Negative); Protein, Urine (Dipstick) Negative (Neg-Trace); Urobilinogen 0.2 mg/dL (0.2-1.0); pH, Urine 6.5 (5.0-9.0)
[2018-05-01 11:18] LABS: Clarity HAZY (Clear)
[2018-05-01 11:22] LABS: Bacteria/HPF 4+ HPF (None Seen); Hyaline Casts/LPF NONE SEEN LPF (0-3 Hyaline); RBC/HPF None Seen HPF (0-3); Squamous Epithelial 0-3 HPF (0-3); WBC/HPF 0-3 HPF (0-3)
[2018-05-01] MEDS ORDERED: ISOVUE-370 76%-LOCM 1 ML ONE (13:26)
== END 2018-05-01 11:54 | disposition home or self-care (01) ==
LOC: ERS 06:00
DX: R11.10 Vomiting, unspecified (principal); E78.5 Hyperlipidemia, unspecified; I10 Essential (primary) hypertension; E11.9 Type 2 diabetes mellitus without complications
CPT/HCPCS: 36415; 36416; 71045; 71275; 80053; 81003; 81015; 82010; 82330; 82553; 82803; 83690; 84484; 85025; 85379; 96361; 96365; 96366; 96375; J1200; J2405; J2550; J2930; S0028

== ENCOUNTER 2018-08-15 20:30 | Emergency (ER) | payer BC ==
[2018-08-15] MEDS ORDERED: Acetaminophen 500 MG TAB ONE (20:39)
[2018-08-15] MEDS ORDERED: Insulin Regular 300 UNITS/3 ML VIAL ONE (20:39)
[2018-08-15] MEDS ORDERED: Promethazine HCl 25 MG/ML VIAL ONE (20:45)
--- NOTE | 2018-08-15 21:12 | RAD ---
AP VIEW CHEST: 08/15/18 HISTORY: Fever. 42-year-old male. AP view chest is obtained on 08/15/18 Comparison made to previous exam from 05/01/18. AP view chest demonstrates some mild cardiomegaly and pulmonary vascular congestion. There is subopti mal inspiratory effort. No evidence of effusions, pneumonia or pneumothorax seen. IMPRESSION: Suboptimal inspiratory effort, otherwise unremarkable AP view chest. POS: [facility]
[2018-08-15 21:22] LABS: #Eosinphils 0.2 thou/uL (0.0-0.7); #Lymphocytes 0.6 thou/uL (1.20-3.40); #Monocytes 0.4 thou/uL (0.11-0.59); #Neutrophils 6.8 thou/uL (1.40-6.50); %Basophils 0.1 % (0.0-1.0); %Eosinophils 1.9 % (0.0-10.0); %Lymphocytes 7.1 % (21.0-51.0); %Monocytes 4.8 % (0.0-10.0); %Neutrophils 86.1 % (42.0-75.0); Hemoglobin 14.5 g/dL (14.0-18.0); Mean Corpuscular HGB CONC 32.9 g/dL (32.0-36.0); Mean Corpuscular Hemoglobin 25.5 pg (27.0-31.0); Mean Corpuscular Volume 77.4 fL (78.0-98.0); Platelet Count 233 thou/uL (130-400); RBC Distribution Width 13.4 % (11.5-14.5); Red Blood Cell (RBC) Count 5.67 mill/uL (4.70-6.10); White Blood Cell (WBC) Count 7.9 thou/uL (4.8-10.8)
[2018-08-15 21:48] LABS: ALT (SGPT) 27 U/L (8-55); AST (SGOT) 19 U/L (5-34); Albumin 3.9 g/dL (3.5-5.0); Alkaline Phosphatase 95 U/L (40-150); Anion Gap 14 mmol/L (10-20); BUN (Urea Nitrogen) 13 mg/dL (8.9-20.6); Bilirubin, Total 0.7 mg/dL (0.2-1.2); Calc. Creatinine Clearance 0 mL/min (70-130); Calcium 8.7 mg/dL (7.8-10.44); Carbon Dioxide 20 mmol/L (22-29); Chloride 103 mmol/L (98-107); Estimated GFR-MDRD 77; Globulin 3.2 g/dL (2.4-3.5); Glucose 350 mg/dL (70-105); Potassium 3.7 mmol/L (3.5-5.1); Protein, Total 7.1 g/dL (6.0-8.3); Sodium 133 mmol/L (136-145)
[2018-08-15 21:51] LABS: CKMB 3.2 ng/mL (0-6.6); Troponin I Less than 0.010 ng/mL (< 0.028)
[2018-08-15 22:51] LABS: Bilirubin Negative (Negative); Blood, Urine Small (Negative); Clarity CLEAR (Clear); Glucose, Urine (Dipstick) >=1000 mg/dL (Negative); Leukocyte Negative (Negative); Nitrite Negative (Negative); Protein, Urine (Dipstick) 30 mg/dL (Neg-Trace); Specific Gravity, Urine 1.038 (1.002-1.036); Urobilinogen 0.2 mg/dL (0.2-1.0)
[2018-08-15 22:53] LABS: Bacteria/HPF None Seen HPF (None Seen); Hyaline Casts/LPF 0-3 HYALINE CAST LPF (0-3 Hyaline); Pathc Cast-AUWi Flag 0.43 (0-2.49); RBC/HPF 0-3 HPF (0-3); Squamous Epithelial 0-3 HPF (0-3); WBC/HPF 0-3 HPF (0-3)
== END 2018-08-15 23:40 | disposition home or self-care (01) ==
LOC: ERS 20:30
DX: B34.9 Viral infection, unspecified (principal); R07.89 Other chest pain; E11.65 Type 2 diabetes mellitus with hyperglycemia; E78.5 Hyperlipidemia, unspecified; I10 Essential (primary) hypertension
CPT/HCPCS: 36415; 36416; 71045; 80053; 81003; 81015; 82010; 82553; 83605; 84484; 85025; 87804; 93005; 96365; 96375; J1815; J2550

== ENCOUNTER 2018-09-21 21:06 | Emergency (ER) | payer BC ==
[2018-09-21 21:46] LABS: #Basophils 0.1 thou/uL (0.0-0.2); #Eosinphils 0.2 thou/uL (0.0-0.7); #Lymphocytes 2.6 thou/uL (1.20-3.40); #Monocytes 0.5 thou/uL (0.11-0.59); #Neutrophils 3.7 thou/uL (1.40-6.50); %Basophils 1.4 % (0.0-1.0); %Eosinophils 3.1 % (0.0-10.0); %Lymphocytes 37.3 % (21.0-51.0); %Monocytes 6.4 % (0.0-10.0); %Neutrophils 51.9 % (42.0-75.0); Hemoglobin 15.4 g/dL (14.0-18.0); Mean Corpuscular Volume 75.1 fL (78.0-98.0); Mean Platelet Volume 8.5 fL (7.4-10.4); Platelet Count 300 thou/uL (130-400); RBC Distribution Width 13.1 % (11.5-14.5); Red Blood Cell (RBC) Count 5.72 mill/uL (4.70-6.10); White Blood Cell (WBC) Count 7.1 thou/uL (4.8-10.8)
[2018-09-21 22:26] LABS: ALT (SGPT) 33 U/L (8-55); AST (SGOT) 23 U/L (5-34); Albumin 4.3 g/dL (3.5-5.0); Alkaline Phosphatase 128 U/L (40-150); Anion Gap 11 mmol/L (10-20); BUN (Urea Nitrogen) 14 mg/dL (8.9-20.6); Bilirubin, Total 0.3 mg/dL (0.2-1.2); Calc. Creatinine Clearance 0 mL/min (70-130); Calcium 9.6 mg/dL (7.8-10.44); Carbon Dioxide 25 mmol/L (22-29); Chloride 104 mmol/L (98-107); Estimated GFR-MDRD 86; Globulin 3.9 g/dL (2.4-3.5); Glucose 334 mg/dL (70-105); Potassium 4.3 mmol/L (3.5-5.1); Protein, Total 8.2 g/dL (6.0-8.3); Sodium 136 mmol/L (136-145)
== END 2018-09-21 22:56 | disposition home or self-care (01) ==
LOC: ERS 21:06
DX: I83.009 Varicose veins of unspecified lower extremity with ulcer of unspecified site (principal); E78.5 Hyperlipidemia, unspecified; I10 Essential (primary) hypertension; E11.9 Type 2 diabetes mellitus without complications
CPT/HCPCS: 36415; 80053; 83880; 84484; 85025; 93005

== ENCOUNTER 2018-11-09 14:21 | Inpatient (IN) | payer BC ==
--- NOTE | 2018-11-09 15:09 | RAD ---
CHEST 1 VIEW: Date: 11/09/18 INDICATION: Cough. COMPARISON: Prior exam dated 09/11/18. IMPRESSION: Low lung volumes. Lungs are clear. No pleural effusion or pneumothorax evident. No acute osseous abno rmality is evident. IMPRESSION: No acute abnormality. POS: [facility]
[2018-11-09 15:23] LABS: Bilirubin Negative (Negative); Blood, Urine Small (Negative); Clarity Clear (Clear); Glucose, Urine (Dipstick) 500 mg/dL (Negative); Leukocyte Negative (Negative); Nitrite Negative (Negative); Protein, Urine (Dipstick) Negative (Neg-Trace); Urobilinogen 0.2 mg/dL (0.2-1.0); pH, Urine 5.5 (5.0-9.0)
[2018-11-09 15:24] LABS: Base Excess-Venous -0.6 mmol/L (0 (+/- 2.5)); Bicarbonate (HCO3v) 23.1 mmol/L (22.0-29.0); CO2 Tension (PvCO2) 34.6 mmHg (41.0-51.0); Calcium, Ionized 1.07 mmol/L (1.12-1.32); Hemoglobin - Calc 15.2 g/dL (12.0-18.0); Potassium 5.6 mmol/L (3.4-4.7); Specific Gravity, Urine 1.033 (1.002-1.036); T. Carbon Dioxide 24.2 mmol/L (1.0-85.0); pH (Venous) 7.433 (7.35-7.45); vO2 Saturation-calc 98.9 % (94-98)
[2018-11-09 15:28] LABS: Bacteria/HPF Rare-Few HPF (None Seen); RBC/HPF 0-3 HPF (0-3); Squamous Epithelial 0-3 HPF (0-3); WBC/HPF None Seen HPF (0-3)
[2018-11-09 15:47] LABS: Hemoglobin 12.1 g/dL (14.0-18.0); Mean Corpuscular HGB CONC 34.4 g/dL (32.0-36.0); Mean Corpuscular Hemoglobin 26.8 pg (27.0-31.0); Mean Corpuscular Volume 77.9 fL (78.0-98.0); Mean Platelet Volume 11.7 fL (7.4-10.4); Platelet Count 138 thou/uL (130-400); RBC Distribution Width 13.3 % (11.5-14.5); Red Blood Cell (RBC) Count 4.52 mill/uL (4.70-6.10); White Blood Cell (WBC) Count 8.2 thou/uL (4.8-10.8)
[2018-11-09 15:51] LABS: Eosinophils 1 % (0-10); Lymphocytes 27 % (21-51); MDiff Complete? YES; Monocytes 6 % (0-10); Neutrophil 64 % (42-75); Platelet Morphology Comment Appears Adequate; RBC Morphology Normal
[2018-11-09] MEDS ORDERED: Insulin Regular 300 UNITS/3 ML VIAL ONE (16:18)
[2018-11-09 17:19] LABS: Anion Gap 21 mmol/L (10-20); BUN (Urea Nitrogen) 16 mg/dL (8.9-20.6); Calc. Creatinine Clearance 0 mL/min (70-130); Carbon Dioxide 16 mmol/L (22-29); Chloride 98 mmol/L (98-107); Estimated GFR-MDRD 71; Potassium 4.6 mmol/L (3.5-5.1)
[2018-11-09 17:20] LABS: ALT (SGPT) 32 U/L (8-55); AST (SGOT) 22 U/L (5-34); Albumin 3.7 g/dL (3.5-5.0); Alkaline Phosphatase 116 U/L (40-150); Bilirubin, Total 0.5 mg/dL (0.2-1.2); Globulin 2.5 g/dL (2.4-3.5); Glucose 787 mg/dL (70-105); Lipase 119 U/L (8-78); Protein, Total 6.2 g/dL (6.0-8.3)
[2018-11-09 17:21] LABS: Base Excess-Venous 0.2 mmol/L (0 (+/- 2.5)); CO2 Tension (PvCO2) 45.3 mmHg (41.0-51.0); Calcium, Ionized 1.15 mmol/L (1.12-1.32); Hemoglobin - Calc 13.9 g/dL (12.0-18.0); O2 Tension (PvO2) 38.9 mmHg (35.0-45.0); Potassium 4.7 mmol/L (3.4-4.7); T. Carbon Dioxide 27.4 mmol/L (1.0-85.0); pH (Venous) 7.367 (7.35-7.45); vO2 Saturation-calc 71.2 % (94-98)
[2018-11-09 17:23] LABS: Sodium 130 mmol/L (136-145)
[2018-11-09] MEDS ORDERED: Bisacodyl 10 MG SUPP PR PRN (23:01)
[2018-11-09] MEDS ORDERED: Senokot S 8.6-50 MG TAB PO PRN (23:01)
[2018-11-09] MEDS ORDERED: HumaLOG 300 UNITS/3 ML VIAL SC PRN (23:02)
[2018-11-09] MEDS ORDERED: Dextrose 50% Abboject 50 ML SYRINGE SLOW IVP PRN ×2 (23:02→23:52)
[2018-11-09] MEDS ORDERED: Dextrose 5% in Water 1,000 ML IV PRN ×2 (23:02→23:52)
[2018-11-09] MEDS ORDERED: HumaLOG 300 UNITS/3 ML VIAL SC SCH (23:45)
[2018-11-09] MEDS ORDERED: Insulin Glargine 20 UNITS in Pre-Filled Syringe SC SCH (23:45)
[2018-11-10 00:09] LABS: Lactic Acid 1.5 mmol/L (0.5-2.2)
[2018-11-10 00:18] LABS: Calcium 8.8 mg/dL (7.8-10.44); Chloride 100 mmol/L (98-107); Sodium 129 mmol/L (136-145)
[2018-11-10 00:22] LABS: Calc. Creatinine Clearance 0 mL/min (70-130); Estimated GFR-MDRD 75
[2018-11-10 00:23] LABS: BUN (Urea Nitrogen) 10 mg/dL (8.9-20.6)
[2018-11-10 00:53] LABS: Glucose 462 mg/dL (70-105)
[2018-11-10 00:59] LABS: Carbon Dioxide 19 mmol/L (22-29)
[2018-11-10 01:02] LABS: Anion Gap 15 mmol/L (10-20)
[2018-11-10] MEDS: HumaLOG 300 UNITS/3 ML VIAL SC PRN ×4 (01:51→17:27)
[2018-11-10] MEDS: Sodium Chloride 0.9% 1,000 ML IV SCH ×2 (01:51→14:39)
[2018-11-10] MEDS ORDERED: HumaLOG 300 UNITS/3 ML VIAL SC SCH ×2 (02:00→08:00)
--- NOTE | 2018-11-10 04:32 | HP ---
CHIEF COMPLAINT: Elevated blood sugar. HISTORY OF PRESENT ILLNESS: The patient is a very pleasant 43-year-old male with history of diabetes, who presented to the hospital after it was noted high sugars on his monitor. The patient stated that normally he is on Victoza and Lantus. However, due to recent switch of his insurance, his Victoza and Lantus would cost about 1000 dollars and he could not afford that. The patient stated that he has been controlling his blood sugars through diet. However, for the past few days he has been having increased amount of stress at work and today while he was at work, started having abdominal pain, diarrhea, polyuria. At this time, he checked his blood sugar and on the machine it noted to be very high, so he came into the ER for further evaluation. PAST MEDICAL HISTORY: Has a history of type 2 diabetes, hyperlipidemia, hypertension. PAST SURGICAL HISTORY: He has had hand surgery. SOCIAL HISTORY: He denies any smoking, alcohol, or drug use. He is , is a full code. Lives with his . FAMILY HISTORY: History of diabetes in his family. ALLERGIES: HE IS ALLERGIC TO SULFA AND MAGNESIUM. HOME MEDICATIONS: The patient takes simvastatin 10 mg daily. He is on Lantus 30 units at night and Victoza in the morning. REVIEW OF SYSTEMS: All negative except for the ones mentioned above in the HPI. PHYSICAL EXAMINATION: VITAL SIGNS: As of the following; temperature of 99.2, pulse 100, respirations 16, saturation 97% on room air, blood pressure 114/64. GENERAL: He is awake, alert, and oriented x3. Does not appear in any distress. CV: S1, S2 present. No murmurs, rubs or gallops. HEENT: Normocephalic, atraumatic. No lymphadenopathy noted. ABDOMEN: Soft and nontender. Bowel sounds are present x2. LUNGS: Clear to auscultation. No rhonchi or wheezes noted. NEUROVASCULAR: No focal deficits noted. SKIN: No cuts, lesions, or bruises noted. LABORATORY RESULTS: As of the following; WBC of 8.2, hemoglobin of 12.1, hematocrit of 35.2, his platelets were 138. Chemistry, sodium of 129, potassium of 5.0. His anion gap was 15. His bicarb was 19. His sugar was 462. His repeat lactic acid was 1.5. The patient also had a UA, which indicated ketones has small amount of blood. His beta-hydroxybutyric acid was 0.52. ASSESSMENT AND PLAN: The patient is a very pleasant 43-year-old male who presents to the hospital with elevated blood sugars. 1. Diabetic ketoacidosis. The patient did receive some short-acting insulin at [facility]. When he was transitioned here, his anion gap had completely closed. I have provided him with Lantus 20 units tonight followed by some Humalog and will put him on a mild to moderate Humalog sliding scale. May recommend switching his insulin to maybe 70/30 for better coverage and affordability. We will continue some IV hydration. We will also check a hemoglobin A1c. 2. Hypertension. We will continue his home medications. 3. Hyperlipidemia. We will continue his home medications. 4. Deep venous thrombosis prophylaxis. We will put the patient on heparin subcu. Job ID: [id number]
[2018-11-10 06:15] VITALS: BMI 29.2
[2018-11-10] MEDS ORDERED: Loratadine 10 MG TAB PO PRN (08:03)
[2018-11-10] MEDS ORDERED: Ondansetron PF 4 MG/2 ML Vial IVP PRN (08:03)
[2018-11-10] MEDS ORDERED: Artificial Tears 18 DROP/0.9 ML EA EYE PRN (08:03)
[2018-11-10] MEDS ORDERED: Temazepam 15 MG CAP PO PRN (08:03)
[2018-11-10] MEDS ORDERED: Diabetic Tussin 200 MG/10 ML UDCUP PO PRN (08:03)
[2018-11-10] MEDS ORDERED: hydrALAZINE 20 MG/ML VIAL SLOW IVP PRN ×2 (08:03→21:28)
[2018-11-10] MEDS ORDERED: Loperamide HCl 2 MG CAP PO PRN (08:03)
[2018-11-10] MEDS ORDERED: Eucerin (Mineral Oil/Petrolatum,White) 30 gm Jar TOP PRN (08:03)
[2018-11-10] MEDS ORDERED: Sodium Chloride 0.65% Nasal 44 ML BOT EA NARE PRN (08:03)
[2018-11-10] MEDS ORDERED: Ondansetron ODT 4 MG TAB PO PRN (08:03)
[2018-11-10] MEDS: Aspirin 81 mg Enteric Coated Tablet PO SCH (09:11)
[2018-11-10] MEDS: Fenofibrate Nanocrystallized 145 MG TAB PO SCH (09:12)
[2018-11-10] MEDS: Losartan 25 MG TAB PO SCH (09:12)
[2018-11-10] MEDS: HumuLIN 70/30 (300 UNITS/3 ML VIAL) SC SCH ×2 (09:13→21:08)
[2018-11-10] MEDS: Heparin 5,000 UNITS/ML VIAL SC SCH ×3 (09:19→21:06)
[2018-11-10 09:22] LABS: Hemoglobin A1c 14.5 % (4.0-6.0)
[2018-11-10 09:29] LABS: #Eosinphils 0.2 thou/uL (0.0-0.7); #Lymphocytes 2.6 thou/uL (1.20-3.40); #Monocytes 0.6 thou/uL (0.11-0.59); #Neutrophils 3.5 thou/uL (1.40-6.50); %Basophils 0.5 % (0.0-1.0); %Eosinophils 3.5 % (0.0-10.0); Hemoglobin 12.8 g/dL (14.0-18.0); Mean Corpuscular HGB CONC 34.6 g/dL (32.0-36.0); Mean Corpuscular Hemoglobin 26.5 pg (27.0-31.0); Mean Corpuscular Volume 76.5 fL (78.0-98.0); Mean Platelet Volume 11.4 fL (7.4-10.4); Platelet Count 220 thou/uL (130-400); RBC Distribution Width 14.9 % (11.5-14.5); Red Blood Cell (RBC) Count 4.83 mill/uL (4.70-6.10)
--- NOTE | 2018-11-10 12:23 | PDOC.PN ---
- Subjective Encounter Start Date: 11/10/18 Encounter Start Time: 08:00 -: old records requested/rev Patient seen and examined. No new complaints. No overnight events - Objective Resuscitation Status - Order Detail: 11/09/18 23:01 Resuscitation Status Routine Resuscitation Status: FULL: Full Resuscitation MAR Reviewed: Yes Vital Signs & Weight: Vital Signs (12 hours) Temp Pulse Resp BP Pulse Ox 11/10/18 11:59 98.6 F 88 16 147/88 H 95 11/10/18 08:00 95 11/10/18 07:45 98.9 F 80 18 152/87 H 95 11/10/18 03:46 99.0 F 92 18 134/77 94 L Weight Weight 209 lb 14.081 oz I&O: 11/09/18 11/10/18 11/11/18 06:59 06:59 06:59 Intake Total 1820 Balance 1820 Result Diagrams: 11/10/18 08:10 11/10/18 10:51 Additional Labs: Accuchecks 11/10/18 11/10/18 11/09/18 06:05 01:47 23:41 POC Glucose 305 H 409 H 457 H 11/09/18 11/09/18 11/09/18 22:31 20:05 18:18 POC Glucose 430 H 345 H 390 H 11/09/18 17:01 POC Glucose 491 H Radiology Reviewed by me: Yes Phys Exam - Physical Examination Constitutional: NAD HEENT: PERRLA, moist MMs, sclera anicteric Neck: no JVD, supple Respiratory: no wheezing, no rales, no rhonchi, clear to auscultation bilateral Cardiovascular: RRR, no significant murmur, no rub Gastrointestinal: soft, non-tender, no distention, positive bowel sounds Musculoskeletal: no edema, pulses present Neurological: non-focal, normal sensation, moves all 4 limbs Lymphatic: no nodes Psychiatric: normal affect, A&O x 3 Skin: no rash, normal turgor Dx/Plan (1) Acute kidney injury Code(s): N17.9 - ACUTE KIDNEY FAILURE, UNSPECIFIED Status: Acute (2) High anion gap metabolic acidosis Code(s): E87.2 - ACIDOSIS Status: Acute (3) Hyponatremia Code(s): E87.1 - HYPO-OSMOLALITY AND HYPONATREMIA Status: Acute (4) Lactic acidosis Code(s): E87.2 - ACIDOSIS Status: Acute (5) Diabetes type 2, uncontrolled Code(s): E11.65 - TYPE 2 DIABETES MELLITUS WITH HYPERGLYCEMIA Status: Chronic (6) Hypertension Code(s): I10 - ESSENTIAL (PRIMARY) HYPERTENSION Status: Chronic (7) Hypertriglyceridemia Code(s): E78.1 - PURE HYPERGLYCERIDEMIA Status: Chronic (8) Obesity (BMI 30.0-34.9) Code(s): E66.9 - OBESITY, UNSPECIFIED Status: Chronic - Plan cont current plan of care, plan discussed w/ family * continue IVF * monitor labs * will control his diabetes * counseled to be compliant with insulin regimen. Review of Systems - Review of Systems ENT: negative: Ear Pain, Ear Discharge, Nose Pain, Nose Discharge, Nose Congestion, Mouth Pain, Mouth Swelling, Throat Pain, Throat Swelling, Other Respiratory: negative: Cough, Dry, Shortness of Breath, Hemoptysis, SOB with Excertion, Pleuritic Pain, Sputum, Wheezing Cardiovascular: negative: chest pain, palpitations, orthopnea, paroxysmal nocturnal dyspnea, edema, light headedness, other Gastrointestinal: negative: Nausea, Vomiting, Abdominal Pain, Diarrhea, Constipation, Melena, Hematochezia, Other Genitourinary: negative: Dysuria, Frequency, Incontinence, Hematuria, Retention , Other Musculoskeletal: negative: Neck Pain, Shoulder Pain, Arm Pain, Back Pain, Hand Pain, Leg Pain, Foot Pain, Other - Medications/Allergies Allergies/Adverse Reactions: Allergies Allergy/AdvReac Type Severity Reaction Status Date / Time latex Allergy Mild Verified 11/10/18 05:15 morphine Allergy Mild Verified 11/10/18 05:15 Sulfa (Sulfonamide Allergy Mild Verified 11/10/18 05:15 Antibiotics) iodine Allergy Verified 01/21/18 01:57 shellfish derived Allergy Verified 01/21/18 01:57 Medications: Current Medications Artificial Tears (Tears Naturale) 2 drop EA EYE PRN PRN PRN Reason: Dry Eyes Aspirin (Ecotrin) 81 mg PO DAILY [facility] Last Admin: 11/10/18 09:11 Dose: 81 mg Atorvastatin Calcium (Lipitor) 20 mg PO HS [facility] Bisacodyl (Dulcolax) 10 mg MT DAILYPRN PRN PRN Reason: Constipation Dextrose/Water (Dextrose 50%) 25 gm SLOW IVP PRN PRN PRN Reason: Hypoglycemia Fenofibrate (Tricor) 145 mg PO DAILY [facility] Last Admin: 11/10/18 09:12 Dose: 145 mg Glucagon (Glucagon) 1 mg IM PRN PRN PRN Reason: Hypoglycemia Guaifenesin (Robitussin Sf) 200 mg PO Q4H PRN PRN Reason: Cough Heparin Sodium (Porcine) (Heparin) 5,000 units SC TID [facility] Last Admin: 11/10/18 09:19 Dose: Not Given Hydralazine HCl (Apresoline) 10 mg SLOW IVP Q4H PRN PRN Reason: SBP > 180 and HR < 70 Sodium Chloride (Normal Saline 0.9%) 1,000 mls @ 75 mls/hr IV .[id number] [facility] Last Admin: 11/10/18 01:51 Dose: 1,000 mls Dextrose/Water (D5w) 1,000 mls @ 0 mls/hr IV .Q0M PRN PRN Reason: Hypoglycemia Insulin Human Isoph/Insulin Regular (Humulin 70/30) 25 units SC BID [facility] Last Admin: 11/10/18 09:13 Dose: 25 unit Insulin Human Lispro (Humalog) 0 units SC .MODERATE SLIDING SC PRN PRN Reason: Moderate Correctional Scale Last Admin: 11/10/18 11:31 Dose: 10 unit Loperamide HCl (Imodium) 2 mg PO PRN PRN PRN Reason: Diarrhea/Loose Stools Loratadine (Claritin) 10 mg PO DAILYPRN PRN PRN Reason: Sinus Symptoms Losartan Potassium (Cozaar) 25 mg PO DAILY [facility] Last Admin: 11/10/18 09:12 Dose: 25 mg Mineral Oil/White Petrolatum (Eucerin Cream) 0 gm TOP BIDPRN PRN PRN Reason: Dry Skin Ondansetron HCl (Zofran) 4 mg IVP Q6H PRN PRN Reason: Nausea/Vomiting Ondansetron HCl (Zofran Odt) 4 mg PO Q6H PRN PRN Reason: Nausea/Vomiting Senna/Docusate Sodium (Senokot S) 2 tab PO BID PRN PRN Reason: Constipation Sodium Chloride (Flush - Normal Saline) 10 ml IVF Q12HR [facility] Last Admin: 11/10/18 09:19 Dose: Not Given Sodium Chloride (Flush - Normal Saline) 10 ml IVF PRN PRN PRN Reason: Saline Flush Sodium Chloride ([place] Nasal [place] 0.65%) 0 ml EA NARE QIDPRN PRN PRN Reason: Nasal Congestion Temazepam (Restoril) 15 mg PO HSPRN PRN PRN Reason: Insomnia
[2018-11-10 14:39] LABS: Sodium 139 mmol/L (136-145)
[2018-11-10 14:40] LABS: Anion Gap 22 mmol/L (10-20); BUN (Urea Nitrogen) 13 mg/dL (8.9-20.6); Carbon Dioxide 13 mmol/L (22-29); Chloride 109 mmol/L (98-107); Potassium 4.9 mmol/L (3.5-5.1)
[2018-11-10 14:41] LABS: Calc. Creatinine Clearance 123 mL/min (70-130); Calcium 7.9 mg/dL (7.8-10.44); Estimated GFR-MDRD Greater than 90; Glucose 277 mg/dL (70-105)
[2018-11-10] MEDS ORDERED: Non-Formulary Item 1 EACH (Pravastatin Sodium [Pravastatin Sodium] 80 MG) PO SCH (21:00)
[2018-11-10] MEDS: Atorvastatin Calcium 20 MG TAB PO SCH (21:03)
[2018-11-10] MEDS ORDERED: Acetaminophen 650 MG Suppository PR PRN (21:28)
[2018-11-11] MEDS: HumaLOG 300 UNITS/3 ML VIAL SC PRN ×4 (05:39→21:20)
[2018-11-11] MEDS: Sodium Chloride 0.9% 1,000 ML IV SCH (05:41)
[2018-11-11] MEDS ORDERED: metFORMIN 500 MG TAB PO SCH (08:00)
[2018-11-11] MEDS ORDERED: glyBURIDE 5 MG TAB PO SCH (09:00)
[2018-11-11] MEDS: Fenofibrate Nanocrystallized 145 MG TAB PO SCH (09:13)
[2018-11-11] MEDS: Losartan 25 MG TAB PO SCH (09:13)
[2018-11-11] MEDS: Heparin 5,000 UNITS/ML VIAL SC SCH ×3 (09:13→21:14)
[2018-11-11] MEDS: Aspirin 81 mg Enteric Coated Tablet PO SCH (09:13)
[2018-11-11] MEDS: Acetaminophen 325 MG TAB PO PRN ×2 (09:13→21:20)
[2018-11-11] MEDS: HumuLIN 70/30 (300 UNITS/3 ML VIAL) SC SCH ×2 (09:14→21:13)
--- NOTE | 2018-11-11 10:08 | DIS ---
DATE OF ADMISSION: 11/09/2018 DATE OF DISCHARGE: 11/11/2018 PRIMARY CARE PHYSICIAN: [facility] Call admission. DISCHARGE DISPOSITION: Home. PRIMARY DISCHARGE DIAGNOSES: 1. Acute kidney injury due to osmotic diuresis and dehydration. 2. Hyperglycemia associated with diabetes due to noncompliance. 3. High anion gap metabolic acidosis due to lactic acidosis secondary to dehydration. 4. Pseudohyponatremia. 5. Uncontrolled diabetes type 2 with mild ketosis. SECONDARY DISCHARGE DIAGNOSES: Hypertension, dyslipidemia, obesity, medication noncompliance. PRIMARY PROCEDURE/OPERATION: None. RADIOLOGICAL INVESTIGATION: Chest x-ray normal. SIGNIFICANT LABORATORY DATA: WBC 7.0, hemoglobin 12.8, platelet 220. Sodium 139, potassium 4.9, BUN 13, creatinine 1.04, calcium 7.9, hemoglobin A1c 14.5. Urinalysis, glucosuria. Serum ketones 0.52. DISCHARGE MEDICATION: Losartan 25 mg p.o. daily, Humulin 70/30 35 units subcu b.i.d., Lipitor 20 mg p.o. at bedtime. CONTRAINDICATION: None. CODE STATUS: Full code. 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 ALLERGIES: LATEX, MORPHINE, SULFA, IODINE. DISCHARGE PLAN: Posthospital, the patient is instructed to follow up with the cone machine feeder as well as primary care physician in one week. The patient is also advised to monitor blood sugar at home and necessary patient education about titrating Humulin 70/30 is also discussed. HOSPITAL COURSE: A 43-year-old male with a history of diabetes, who was not taking his medication for a period of time. On admission, his blood sugar was out of control. He was having polyuria, polydipsia, and he was having acute kidney injury secondary to osmotic diuresis from hyperglycemia. He had mildly elevated anion gap acidosis secondary to lactic acidosis. He was not having significant DKA, but he was treated with IV fluid and his DKA was completely resolved. We also increased insulin 70/30 to 35 units subcu b.i.d. For his blood pressure, we started losartan; and for his dyslipidemia, we started Lipitor. All new medication prescription given. Dietary education given. We had a discussion about how to titrate diabetes insulin at home. The patient also reassured me that he will make appointment with primary care physician this week as well as cone machine feeder. Family member was also notified about importance of monitoring blood sugar and follow up with primary care physician. The patient is seen and examined at bedside today. Plan of care discussed with the patient and family member. Currently, temperature 98.5, pulse 84, respiratory rate 18, saturation 96%, blood pressure 122/71. His physical examination is completely normal. The patient is medically stable for discharge later on today. Job ID: [id number]
[2018-11-11 10:50] LABS: Anion Gap 19 mmol/L (10-20); BUN (Urea Nitrogen) 8 mg/dL (8.9-20.6); Calc. Creatinine Clearance 101 mL/min (70-130); Calcium 8.6 mg/dL (7.8-10.44); Carbon Dioxide 17 mmol/L (22-29); Chloride 102 mmol/L (98-107); Estimated GFR-MDRD 75; Glucose 482 mg/dL (70-105); Potassium 4.9 mmol/L (3.5-5.1); Sodium 133 mmol/L (136-145)
[2018-11-11 11:09] LABS: Hemoglobin 13.8 g/dL (14.0-18.0); Mean Corpuscular HGB CONC 34.9 g/dL (32.0-36.0); Mean Corpuscular Hemoglobin 26.5 pg (27.0-31.0); Mean Platelet Volume 9.9 fL (7.4-10.4); Platelet Count 191 thou/uL (130-400); RBC Distribution Width 13.3 % (11.5-14.5); Red Blood Cell (RBC) Count 5.21 mill/uL (4.70-6.10); White Blood Cell (WBC) Count 6.7 thou/uL (4.8-10.8)
[2018-11-11 11:38] LABS: #Basophils 0.1 thou/uL (0.0-0.2); #Eosinphils 0.2 thou/uL (0.0-0.7); #Lymphocytes 2.1 thou/uL (1.20-3.40); #Monocytes 0.5 thou/uL (0.11-0.59); #Neutrophils 3.8 thou/uL (1.40-6.50); %Basophils 1.1 % (0.0-1.0); %Eosinophils 2.9 % (0.0-10.0); %Lymphocytes 31.1 % (21.0-51.0); %Monocytes 7.6 % (0.0-10.0); %Neutrophils 57.2 % (42.0-75.0); Eosinophils 2 % (0-10); Lymphocytes 24 % (21-51); MDiff Complete? YES; Monocytes 3 % (0-10); Neutrophil 69 % (42-75); RBC Morphology Normal; Reactive Lymphocytes 1 % (0-10)
--- NOTE | 2018-11-11 15:35 | PDOC.PN ---
- Subjective Encounter Start Date: 11/11/18 Encounter Start Time: 15:33 -: old records requested/rev Patient seen and examined. No new complaints. No overnight events - Objective Resuscitation Status - Order Detail: 11/09/18 23:01 Resuscitation Status Routine Resuscitation Status: FULL: Full Resuscitation MAR Reviewed: Yes Vital Signs & Weight: Vital Signs (12 hours) Temp Pulse Resp BP BP Pulse Ox 11/11/18 08:51 99.0 F 87 16 126/72 96 11/11/18 08:00 96 11/11/18 04:14 98.5 F 84 18 122/71 96 Weight Weight 209 lb 14.081 oz I&O: 11/10/18 11/11/18 11/12/18 06:59 06:59 06:59 Intake Total 1820 1580 Balance 1820 1580 Result Diagrams: 11/11/18 09:45 11/11/18 09:45 Additional Labs: Accuchecks 11/11/18 11/11/18 11/10/18 11:13 04:14 19:23 POC Glucose 374 H 300 H 393 H 11/10/18 16:11 POC Glucose 398 H Phys Exam - Physical Examination Constitutional: NAD HEENT: PERRLA, moist MMs, sclera anicteric Neck: no JVD, supple Respiratory: no wheezing, no rales, no rhonchi Cardiovascular: RRR, no significant murmur, no rub Gastrointestinal: soft, non-tender, no distention, positive bowel sounds Musculoskeletal: no edema, pulses present Neurological: non-focal, normal sensation Lymphatic: no nodes Psychiatric: normal affect, A&O x 3 Skin: no rash, normal turgor Dx/Plan (1) Acute kidney injury Code(s): N17.9 - ACUTE KIDNEY FAILURE, UNSPECIFIED Status: Acute (2) High anion gap metabolic acidosis Code(s): E87.2 - ACIDOSIS Status: Acute (3) Hyponatremia Code(s): E87.1 - HYPO-OSMOLALITY AND HYPONATREMIA Status: Acute (4) Lactic acidosis Code(s): E87.2 - ACIDOSIS Status: Acute (5) Diabetes type 2, uncontrolled Code(s): E11.65 - TYPE 2 DIABETES MELLITUS WITH HYPERGLYCEMIA Status: Chronic (6) Hypertension Code(s): I10 - ESSENTIAL (PRIMARY) HYPERTENSION Status: Chronic (7) Hypertriglyceridemia Code(s): E78.1 - PURE HYPERGLYCERIDEMIA Status: Chronic (8) Obesity (BMI 30.0-34.9) Code(s): E66.9 - OBESITY, UNSPECIFIED Status: Chronic - Plan cont current plan of care, plan discussed w/ family * medication reviewed * will check accucheck q 2 hrly till tomorrow and cover each time with SSI, for better sugar control * will dc tomorrow. Review of Systems - Review of Systems ENT: negative: Ear Pain, Ear Discharge, Nose Pain, Nose Discharge, Nose Congestion, Mouth Pain, Mouth Swelling, Throat Pain, Throat Swelling, Other Respiratory: negative: Cough, Dry, Shortness of Breath, Hemoptysis, SOB with Excertion, Pleuritic Pain, Sputum, Wheezing Cardiovascular: negative: chest pain, palpitations, orthopnea, paroxysmal nocturnal dyspnea, edema, light headedness, other Gastrointestinal: negative: Nausea, Vomiting, Abdominal Pain, Diarrhea, Constipation, Melena, Hematochezia, Other Genitourinary: negative: Dysuria, Frequency, Incontinence, Hematuria, Retention , Other Musculoskeletal: negative: Neck Pain, Shoulder Pain, Arm Pain, Back Pain, Hand Pain, Leg Pain, Foot Pain, Other - Medications/Allergies Allergies/Adverse Reactions: Allergies Allergy/AdvReac Type Severity Reaction Status Date / Time latex Allergy Mild Verified 11/10/18 05:15 morphine Allergy Mild Verified 11/10/18 05:15 Sulfa (Sulfonamide Allergy Mild Verified 11/10/18 05:15 Antibiotics) iodine Allergy Verified 01/21/18 01:57 shellfish derived Allergy Verified 01/21/18 01:57 Medications: Current Medications Acetaminophen (Tylenol) 650 mg PO Q4H PRN PRN Reason: Headache/Fever/Mild Pain (1-3) Last Admin: 11/11/18 09:13 Dose: 650 mg Acetaminophen (Tylenol) 650 mg KS Q4H PRN PRN Reason: Headache/Fever/Mild Pain (1-3) Artificial Tears (Tears Naturale) 2 drop EA EYE PRN PRN PRN Reason: Dry Eyes Aspirin (Ecotrin) 81 mg PO DAILY [facility] Last Admin: 11/11/18 09:13 Dose: 81 mg Atorvastatin Calcium (Lipitor) 20 mg PO HS [facility] Last Admin: 11/10/18 21:03 Dose: 20 mg Bisacodyl (Dulcolax) 10 mg KS DAILYPRN PRN PRN Reason: Constipation Dextrose/Water (Dextrose 50%) 25 gm SLOW IVP PRN PRN PRN Reason: Hypoglycemia Fenofibrate (Tricor) 145 mg PO DAILY [facility] Last Admin: 11/11/18 09:13 Dose: 145 mg Glucagon (Glucagon) 1 mg IM PRN PRN PRN Reason: Hypoglycemia Guaifenesin (Robitussin Sf) 200 mg PO Q4H PRN PRN Reason: Cough Heparin Sodium (Porcine) (Heparin) 5,000 units SC TID [facility] Last Admin: 11/11/18 15:17 Dose: 5,000 units Hydralazine HCl (Apresoline) 10 mg SLOW IVP Q4H PRN PRN Reason: SBP GREATER THAN 160 Dextrose/Water (D5w) 1,000 mls @ 0 mls/hr IV .Q0M PRN PRN Reason: Hypoglycemia Insulin Human Isoph/Insulin Regular (Humulin 70/30) 35 units SC BID [facility] Last Admin: 11/11/18 09:14 Dose: 35 unit Insulin Human Lispro (Humalog) 0 units SC .MODERATE SLIDING SC PRN PRN Reason: Moderate Correctional Scale Last Admin: 11/11/18 12:26 Dose: 10 unit Loperamide HCl (Imodium) 2 mg PO PRN PRN PRN Reason: Diarrhea/Loose Stools Last Admin: 11/11/18 15:17 Dose: 2 mg Loratadine (Claritin) 10 mg PO DAILYPRN PRN PRN Reason: Sinus Symptoms Losartan Potassium (Cozaar) 25 mg PO DAILY [facility] Last Admin: 11/11/18 09:13 Dose: 25 mg Mineral Oil/White Petrolatum (Eucerin Cream) 0 gm TOP BIDPRN PRN PRN Reason: Dry Skin Ondansetron HCl (Zofran) 4 mg IVP Q6H PRN PRN Reason: Nausea/Vomiting Ondansetron HCl (Zofran Odt) 4 mg PO Q6H PRN PRN Reason: Nausea/Vomiting Senna/Docusate Sodium (Senokot S) 2 tab PO BID PRN PRN Reason: Constipation Sodium Chloride (Flush - Normal Saline) 10 ml IVF Q12HR [facility] Last Admin: 11/11/18 09:13 Dose: 10 ml Sodium Chloride (Flush - Normal Saline) 10 ml IVF PRN PRN PRN Reason: Saline Flush Sodium Chloride ([place] Nasal [place] 0.65%) 0 ml EA NARE QIDPRN PRN PRN Reason: Nasal Congestion Temazepam (Restoril) 15 mg PO HSPRN PRN PRN Reason: Insomnia
[2018-11-11] MEDS: Atorvastatin Calcium 20 MG TAB PO SCH (21:12)
[2018-11-12] MEDS: HumaLOG 300 UNITS/3 ML VIAL SC PRN ×4 (00:17→06:11)
[2018-11-12] MEDS: Aspirin 81 mg Enteric Coated Tablet PO SCH (08:08)
[2018-11-12] MEDS: Losartan 25 MG TAB PO SCH (08:08)
[2018-11-12] MEDS: Fenofibrate Nanocrystallized 145 MG TAB PO SCH (08:08)
[2018-11-12] MEDS: Heparin 5,000 UNITS/ML VIAL SC SCH (08:09)
[2018-11-12] MEDS: HumuLIN 70/30 (300 UNITS/3 ML VIAL) SC SCH (08:09)
[2018-11-12 08:12] VITALS: BP 141/83; TEMP 98.6
--- NOTE | 2018-11-12 11:34 | PDOC.PN ---
- Subjective Encounter Start Date: 11/12/18 Encounter Start Time: 06:30 Patient seen and examined. No new complaints. No overnight events - Objective Resuscitation Status - Order Detail: 11/09/18 23:01 Resuscitation Status Routine Resuscitation Status: FULL: Full Resuscitation MAR Reviewed: Yes Vital Signs & Weight: Vital Signs (12 hours) Temp Pulse Resp BP Pulse Ox 11/12/18 08:09 98.6 F 85 16 141/83 H 96 11/12/18 08:00 96 Weight Weight 209 lb 14.081 oz I&O: 11/11/18 11/12/18 11/13/18 06:59 06:59 06:59 Intake Total 1580 960 Balance 1580 960 Result Diagrams: 11/11/18 09:45 11/11/18 09:45 Additional Labs: Accuchecks 11/12/18 11/12/18 11/12/18 06:03 04:05 02:23 POC Glucose 184 H 205 H 240 H 11/12/18 11/11/18 11/11/18 00:12 22:10 20:16 POC Glucose 380 H 399 H 352 H 11/11/18 11/11/18 11/11/18 17:52 15:43 11:13 POC Glucose 237 H 253 H 374 H Phys Exam - Physical Examination Constitutional: NAD HEENT: PERRLA, moist MMs, sclera anicteric Neck: no JVD, supple Respiratory: no wheezing, no rales, no rhonchi Cardiovascular: RRR, no significant murmur, no rub Gastrointestinal: soft, non-tender, no distention, positive bowel sounds Musculoskeletal: no edema, pulses present Neurological: non-focal, normal sensation, moves all 4 limbs Psychiatric: normal affect, A&O x 3 Skin: no rash, normal turgor Dx/Plan (1) Acute kidney injury Code(s): N17.9 - ACUTE KIDNEY FAILURE, UNSPECIFIED Status: Acute (2) High anion gap metabolic acidosis Code(s): E87.2 - ACIDOSIS Status: Acute (3) Hyponatremia Code(s): E87.1 - HYPO-OSMOLALITY AND HYPONATREMIA Status: Acute (4) Lactic acidosis Code(s): E87.2 - ACIDOSIS Status: Acute (5) Diabetes type 2, uncontrolled Code(s): E11.65 - TYPE 2 DIABETES MELLITUS WITH HYPERGLYCEMIA Status: Chronic (6) Hypertension Code(s): I10 - ESSENTIAL (PRIMARY) HYPERTENSION Status: Chronic (7) Hypertriglyceridemia Code(s): E78.1 - PURE HYPERGLYCERIDEMIA Status: Chronic (8) Obesity (BMI 30.0-34.9) Code(s): E66.9 - OBESITY, UNSPECIFIED Status: Chronic - Plan cont current plan of care, plan discussed w/ family * medication reviewed as below * symptomatic treatment * see discharge summery from yesterday Review of Systems - Review of Systems ENT: negative: Ear Pain, Ear Discharge, Nose Pain, Nose Discharge, Nose Congestion, Mouth Pain, Mouth Swelling, Throat Pain, Throat Swelling, Other Respiratory: negative: Cough, Dry, Shortness of Breath, Hemoptysis, SOB with Excertion, Pleuritic Pain, Sputum, Wheezing Cardiovascular: negative: chest pain, palpitations, orthopnea, paroxysmal nocturnal dyspnea, edema, light headedness, other Gastrointestinal: negative: Nausea, Vomiting, Abdominal Pain, Diarrhea, Constipation, Melena, Hematochezia, Other Genitourinary: negative: Dysuria, Frequency, Incontinence, Hematuria, Retention , Other Musculoskeletal: negative: Neck Pain, Shoulder Pain, Arm Pain, Back Pain, Hand Pain, Leg Pain, Foot Pain, Other Skin: negative: Rash, Lesions, Mark, Bruising, Other - Medications/Allergies Allergies/Adverse Reactions: Allergies Allergy/AdvReac Type Severity Reaction Status Date / Time latex Allergy Mild Verified 11/10/18 05:15 morphine Allergy Mild Verified 11/10/18 05:15 Sulfa (Sulfonamide Allergy Mild Verified 11/10/18 05:15 Antibiotics) iodine Allergy Verified 01/21/18 01:57 shellfish derived Allergy Verified 01/21/18 01:57
--- NOTE | 2018-11-12 12:12 | DIS ---
DATE OF ADMISSION: 11/09/2018 DATE OF DISCHARGE: 11/12/2018 ADDENDUM: HOSPITAL COURSE: Please see my discharge summary dictated from yesterday. There is no change in my discharge summary. Overnight, we kept him because his blood sugar was not super controlled and that is why we monitored his blood sugar every 2 hourly and covered with insulin as per sliding scale. This patient wanted to go home today. I saw him and examined him bedside. Please see my progress note from today for further detail. Job ID: [id number]
== END 2018-11-12 09:21 | disposition home or self-care (01) | DRG 638 ==
LOC: SCSER 14:21 → ERHOLD 21:47 → T4-A 21:54
PROVIDERS: ADMIT Emergency Medicine; ATTEND Emergency Medicine
DX: E11.10 Type 2 diabetes mellitus with ketoacidosis without coma (principal); N17.9 Acute kidney failure, unspecified; E87.2 Acidosis; E87.1 Hypo-osmolality and hyponatremia; E78.5 Hyperlipidemia, unspecified; I10 Essential (primary) hypertension; E66.9 Obesity, unspecified; Z68.29 Body mass index [BMI] 29.0-29.9, adult; E86.0 Dehydration; Z91.14 Patient's other noncompliance with medication regimen; Z88.2 Allergy status to sulfonamides; Z83.3 Family history of diabetes mellitus
CPT/HCPCS: 36415; 36416; 71045; 80048; 80053; 81003; 81015; 82010; 82330; 82435; 82803; 83036; 83605; 83690; 84132; 84295; 85014; 85025; 93005; 94760; 96361; 96374; J1644; J1815; J1825

== ENCOUNTER 2019-03-22 22:21 | Inpatient (IN) | payer SELFPAY ==
[2019-03-22 22:55] LABS: #Basophils 0.2 thou/uL (0.0-0.2); #Eosinphils 0.3 thou/uL (0.0-0.7); #Lymphocytes 2.5 thou/uL (1.20-3.40); #Monocytes 0.8 thou/uL (0.11-0.59); #Neutrophils 5.4 thou/uL (1.40-6.50); %Basophils 2.5 % (0.0-1.0); %Eosinophils 3.2 % (0.0-10.0); %Neutrophils 58.3 % (42.0-75.0); Hemoglobin 11.8 g/dL (14.0-18.0); Mean Corpuscular HGB CONC 33.9 g/dL (32.0-36.0); Mean Corpuscular Hemoglobin 25.7 pg (27.0-31.0); Mean Corpuscular Volume 75.8 fL (78.0-98.0); Mean Platelet Volume 8.3 fL (7.4-10.4); Platelet Count 267 thou/uL (130-400); RBC Distribution Width 14.3 % (11.5-14.5); White Blood Cell (WBC) Count 9.3 thou/uL (4.8-10.8)
[2019-03-22 23:11] LABS: ALT (SGPT) 24 U/L (8-55); AST (SGOT) 17 U/L (5-34); Albumin 3.8 g/dL (3.5-5.0); Alkaline Phosphatase 98 U/L (40-150); Anion Gap 15 mmol/L (10-20); BUN (Urea Nitrogen) 22 mg/dL (8.9-20.6); Bilirubin, Total 0.3 mg/dL (0.2-1.2); Calc. Creatinine Clearance 0 mL/min (70-130); Calcium 9.7 mg/dL (7.8-10.44); Carbon Dioxide 20 mmol/L (22-29); Chloride 103 mmol/L (98-107); Estimated GFR-MDRD 69; Globulin 4.3 g/dL (2.4-3.5); Glucose 356 mg/dL (70-105); Potassium 3.7 mmol/L (3.5-5.1); Protein, Total 8.1 g/dL (6.0-8.3); Sodium 134 mmol/L (136-145)
[2019-03-23] MEDS ORDERED: Insulin Regular 300 UNITS/3 ML VIAL ONE (00:06)
[2019-03-23] MEDS ORDERED: Vancomycin HCl 500 MG VIAL ONE (00:06)
[2019-03-23] MEDS ORDERED: Piperacillin/Tazobactam 4.5 GM VIAL ONE ×2 (00:06→00:10)
[2019-03-23] MEDS ORDERED: Clindamycin/D5W 900 mg/50 ml Premix Bag ONE (00:09)
[2019-03-23] MEDS ORDERED: Acetaminophen 325 MG TAB PO PRN ×2 (02:14→07:17)
[2019-03-23] MEDS ORDERED: Ondansetron PF 4 MG/2 ML Vial IVP PRN ×2 (02:14→07:17)
[2019-03-23] MEDS ORDERED: Ondansetron ODT 4 MG TAB SL PRN (02:14)
[2019-03-23] MEDS ORDERED: Vancomycin HCl 1.5 GM in Sodium Chloride 0.9% 250 ML 300 ML IVPB SCH ×2 (02:30→12:00)
[2019-03-23 03:24] VITALS: BMI 33.9
[2019-03-23] MEDS ORDERED: Dextrose 50% Abboject 50 ML SYRINGE IVP PRN (04:00)
[2019-03-23] MEDS ORDERED: Insulin Regular 300 UNITS/3 ML VIAL SC PRN (04:00)
[2019-03-23] MEDS ORDERED: Dextrose 5% in Water 1,000 ML IV PRN ×2 (04:00→07:17)
[2019-03-23] MEDS ORDERED: Piperacillin/Tazobactam 4.5 GM in Sodium Chloride 0.9% 100 ML IVPB SCH (06:00)
[2019-03-23] MEDS ORDERED: Loratadine 10 MG TAB PO PRN (07:17)
[2019-03-23] MEDS ORDERED: Sodium Chloride 0.65% Nasal 44 ML BOT EA NARE PRN (07:17)
[2019-03-23] MEDS ORDERED: Cepastat Lozenges 1 LOZ PO PRN (07:17)
[2019-03-23] MEDS ORDERED: Loperamide HCl 2 MG CAP PO PRN (07:17)
[2019-03-23] MEDS ORDERED: HumaLOG 300 UNITS/3 ML VIAL SC PRN ×2 (07:17)
[2019-03-23] MEDS ORDERED: Artificial Tears 18 DROP/0.9 ML EA EYE PRN (07:17)
[2019-03-23] MEDS ORDERED: Bisacodyl 10 MG SUPP PR PRN (07:17)
[2019-03-23] MEDS ORDERED: hydrALAZINE 20 MG/ML VIAL SLOW IVP PRN (07:17)
[2019-03-23] MEDS ORDERED: Zolpidem Tartrate 5 MG TAB PO PRN (07:17)
[2019-03-23] MEDS ORDERED: Diabetic Tussin 200 MG/10 ML UDCUP PO PRN (07:17)
[2019-03-23] MEDS ORDERED: Calcium Carbonate 500 MG ChewTAB PO PRN (07:17)
[2019-03-23] MEDS ORDERED: Fentanyl 100 MCG/2 ML VIAL SLOW IVP PRN (07:17)
[2019-03-23] MEDS ORDERED: Senokot S 8.6-50 MG TAB PO PRN (07:17)
[2019-03-23] MEDS ORDERED: Ondansetron ODT 4 MG TAB PO PRN (07:17)
[2019-03-23] MEDS ORDERED: Dextrose 50% Abboject 50 ML SYRINGE SLOW IVP PRN (07:17)
[2019-03-23 07:44] VITALS: BP 128/87; TEMP 98.6
[2019-03-23] MEDS ORDERED: Clindamycin/D5W 900 MG in Premix Bag 1 BAG IVPB SCH (08:00)
[2019-03-23] MEDS ORDERED: Losartan 25 MG TAB PO SCH (09:00)
[2019-03-23] MEDS ORDERED: Famotidine 20 MG TAB PO SCH (09:00)
[2019-03-23] MEDS ORDERED: Saccharomyces boulardii 250 MG CAP PO SCH (09:00)
[2019-03-23] MEDS ORDERED: Enoxaparin Sodium 40 MG/0.4 ML SYRINGE SC SCH (09:00)
[2019-03-23] MEDS ORDERED: Lorazepam 1 MG TAB PO PRN (09:00)
[2019-03-23] MEDS ORDERED: HumuLIN 70/30 (300 UNITS/3 ML VIAL) SC SCH (09:00)
--- NOTE | 2019-03-23 10:46 | HP ---
PRIMARY CARE PHYSICIAN: [facility]. REASON FOR ADMISSION: Left lower extremity cellulitis with wound, failure of outpatient therapy. HISTORY OF PRESENT ILLNESS: A 43-year-old male, who has underlying history of diabetes, who was brought to emergency room for increasing erythema, swelling of left lower extremity. The patient's also noticed wound, which was draining serosanguineous fluid. The patient was also having increasing erythema and increasing pain in lower extremity on the left side, and he was having subjective low-grade fever. The patient's was doing wound care, but the patient was not improving. The patient also reports that he was hospitalized in [place] for similar problem about a month ago. At that time, he was septic and required aggressive IV antibiotic therapy, wound care, as well as ICU admission. The patient was on oral antibiotic therapy and wound care, but the wound was not improving and it was seemed to be getting worse and that is why they decided to go to local emergency room here in [facility], and subsequently, he was transferred to hospital for admission. The patient was given vancomycin, Zosyn, and IV fluid, and his diabetes was out of control and that is why he was given insulin, and he was also given clindamycin. REVIEW OF SYSTEMS: CONSTITUTIONAL: Negative for weight loss or gain, ability to conduct usual activities. SKIN: Negative for rash, itching. EYES: Negative for double vision, pain. ENT/MOUTH: Negative for nose bleeding, neck stiffness, pain, tenderness. CARDIOVASCULAR: Negative for palpitations, dyspnea on exertion, orthopnea. RESPIRATORY: Negative for shortness of breath, wheezing, cough, hemoptysis, fever or night sweats. GASTROINTESTINAL: Negative for poor appetite, abdominal pain, heartburn, nausea, vomiting, constipation, or diarrhea. GENITOURINARY: Negative for urgency, frequency, dysuria, nocturia. MUSCULOSKELETAL: Negative for pain, swelling. NEUROLOGIC/PSYCHIATRIC: Negative for anxiety, depression. ALLERGY/IMMUNOLOGIC: Negative for skin rash, bleeding tendency. Please see my HPI for pertinent positives and negatives. All other review of systems reviewed and negative except as mentioned in HPI. PAST MEDICAL HISTORY: Diabetes type 2, chronically uncontrolled; hypertension; dyslipidemia; obesity. PAST SURGICAL HISTORY: Right 3rd finger surgery. PAST PSYCHIATRIC HISTORY: Reviewed and negative. SOCIAL HISTORY: The patient is . No history of tobacco, alcohol, or illicit drug abuse. FAMILY HISTORY: No strong family history of premature coronary artery disease, stroke, or cancer. Diabetes and hypertension run among several family members. ALLERGIES: 1. DOXYCYCLINE. 2. IODINE. 3. LATEX. 4. SULFA. 5. SHELLFISH. 6. MORPHINE. CURRENT HOME MEDICATIONS: 1. Lorazepam 1 mg p.o. t.i.d. p.r.n. 2. Lipitor 20 mg p.o. q.h.s. 3. Losartan 25 mg p.o. daily. 4. Humulin 70/30, 35 units subcu b.i.d. EMERGENCY ROOM COURSE: The patient has received vancomycin, Zosyn, clindamycin, IV fluid. PHYSICAL EXAMINATION: VITAL SIGNS: Currently, temperature 98.4, pulse 90, respiratory rate 16, saturation 98%, blood pressure 125/79, and weight 243 pounds. GENERAL: The patient is currently alert and awake, no obvious acute distress. HEENT: Head, normocephalic and atraumatic. Eyes; pupils round, reactive to light. Extraocular muscle intact. ENT, oropharynx within normal limits. Moist mucous membranes. No oral lesion. No pharyngeal erythema. No exudate. NECK: Supple. No JVD. No thyromegaly. No carotid bruit. No jugular venous distention. LUNGS: Clear to auscultation without any rhonchi or rales. CARDIAC: S1 and S2 regular. No murmur. No gallop. No rub. ABDOMEN: Soft. Bowel sounds present. Nontender. Nondistended. No organomegaly. No mass. No suprapubic tenderness. BACK: Unremarkable. No CVA tenderness. EXTREMITIES: Upper extremities, passive movement of all joints are normal. Lower extremities; left lower extremity wound with a dressing, erythema, swelling, tenderness noted. No calf tenderness. Good distal pulsation. Right lower extremity within normal limit. NEUROLOGIC: Nonfocal examination. SKIN: The patient does have cellulitis and wound over left lower extremity. Other than that, skin is normal. PSYCHIATRIC: Normal affect. SIGNIFICANT LABORATORY DATA: CBC; WBC 9.3, hemoglobin 11.8, platelets 267. BMP; sodium 134, potassium 3.7, chloride 103, carbon dioxide 20, anion gap 15, BUN 22, creatinine 1.37, glucose 356, calcium 9.7. Lactic acid 0.2. LFT; AST 17, ALT 24, alkaline phosphatase 98, albumin 3.8. ASSESSMENT AND PLAN: 1. Left lower extremity cellulitis with wound. This patient has failure of outpatient therapy. He has uncontrolled diabetes. He is at high risk for sepsis. He was also having low-grade fever and tachycardia upon arrival to ER. At this point, the patient will need IV antibiotic therapy. I will continue with vancomycin as per pharmacy adjusted dose and Zosyn 3.375 g IV q.6 hourly. His pain will be controlled with fentanyl 25 mcg every 2 hourly and Florastor 250 mg p.o. daily. Wound Care Team will be consulted for wound care. This patient was tried to leave against medical advice, but I tried to convince him in the hospital for IV antibiotic therapy. 2. Diabetes type 2, uncontrolled. I will start Humulin 70/30, 35 units subcu b.i.d. Humalog insulin as per moderate sliding scale. Diabetic diet will be given. 3. Hypertension. If blood pressure permits, then we will continue losartan 25 mg p.o. daily. 4. Dyslipidemia. We will continue Lipitor 20 mg p.o. q.h.s. 5. Anxiety/depression. We will continue lorazepam 1 mg t.i.d. p.r.n. 6. Obesity with BMI 32. Dietary education given. Weight loss education given. Healthy lifestyle measure discussed with the patient. 7. Deep venous thrombosis prophylaxis. Lovenox 40 mg subcu daily. 8. Gastrointestinal prophylaxis. Pepcid 20 mg p.o. b.i.d. CODE STATUS: The patient is full code. DISPOSITION PLAN: Based on clinical course, the patient agreed to stay in hospital for IV antibiotic therapy until . On that day, he has to go out of hospital to go back to [place], so we will preferably discharge him on morning. Job ID: [id number]
--- NOTE | 2019-03-23 11:41 | DIS ---
DATE OF ADMISSION: 03/23/2019 DATE OF DISCHARGE: 03/23/2019 DISCHARGE DISPOSITION: Against medical advice. PRIMARY DISCHARGE DIAGNOSIS: Cellulitis, left lower extremity. SECONDARY DISCHARGE DIAGNOSES: Uncontrolled diabetes type 2, hypertension, dyslipidemia, obesity with BMI 33, microcytic anemia, chronic kidney disease stage 3. PRIMARY PROCEDURE/OPERATION: None. RADIOLOGICAL INVESTIGATION: None. SIGNIFICANT LABS: Please see my HPI for further details. CONTRAINDICATION: None. DISCHARGE MEDICATIONS: The patient will continue all his previous medication. He left against medical advice without any new medication prescription. ALLERGIES: SHELLFISH, IODINE, AND MORPHINE. DISCHARGE PLAN: The patient will follow up with primary care physician. INPATIENT KAYAK MAKER: None. HOSPITAL COURSE: Please see my HPI for more details. I have dictated H and P today and the patient was overnight admitted for cellulitis of lower extremity with wound. We decided to keep this patient in hospital for IV antibiotic therapy, but this patient left against medical advice. Job ID: [id number]
[2019-03-23] MEDS ORDERED: Piperacillin/Tazobactam 3.375 GM in Sodium Chloride 0.9% 100 ML IVPB SCH (12:00)
[2019-03-23] MEDS ORDERED: Vancomycin HCl 1.75 GM in Sodium Chloride 0.9% 500 ML IVPB SCH (13:00)
[2019-03-23] MEDS ORDERED: Atorvastatin Calcium 20 MG TAB PO SCH (21:00)
--- NOTE | 2019-03-24 07:17 | PQF ---
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 Clinical indicators are provided on the bottom of this form for your review Can you please further specify the relationship of Cellulitis to DM? Please check appropriate box(s): [ ] Cellulitis due to Diabetes [x ] Cellulitis not due to Diabetes [ ] Other diagnosis please specify [ ] Unable to determine For continuity of documentation, please document condition throughout progress notes and discharge summary. Thank You. CLINICAL INDICATORS: H&P 03/[address] Max Reason for admission: Left lower extremity cellulitis with wound, failure of outpatient therapy H&P 03/[address] Max brought to emergency room for increasing erythema , swelling of left lower extremity H&P 03/[address] Max Extremities: Lower extremities; left lower extremity wound with a dressing, erythema, swelling, tenderness noted H&P 03/[address] Max Diabetes type, uncontrolled. I will start Humulin 70/30, 35 units subcu b.i.d DS 03/[address] Max Primary discharge diagnosis: Cellulitis, left lower extremity RISKS: ED Note 03/23-Diabetic peripheral neuropathy ED Note 03/23-PVD with open venous stasis ulcers, uncontrolled diabetes H&P 03/23-Obesity with BMI 32 DS 03/23- Chronic Kidney Disease stage 3 TREATMENT: DEC 16-Vancomycin HLC 1 gm IV DEC 16-Clindamycin 900 mg IV DEC 16-Zosyn 4.5 gm IV DEC 16-regular insulin 300 units (This form is maintained as a part of the permanent medical record) 2014 [employer]. All Rights Reserved [email or web address] [not provided] [email or web address]
== END 2019-03-23 11:27 | disposition left against medical advice (07) | DRG 603 ==
LOC: SCSER 22:21 → SURG B 03-23 00:05
PROVIDERS: ADMIT Hospitalist; ATTEND Hospitalist
DX: L03.116 Cellulitis of left lower limb (principal); E78.5 Hyperlipidemia, unspecified; E66.9 Obesity, unspecified; F32.9 Major depressive disorder, single episode, unspecified; E11.42 Type 2 diabetes mellitus with diabetic polyneuropathy; N18.3 Chronic kidney disease, stage 3 (moderate); E11.22 Type 2 diabetes mellitus with diabetic chronic kidney disease; I12.9 Hypertensive chronic kidney disease with stage 1 through stage 4 chronic kidney disease, or unspecified chronic kidney disease; E11.51 Type 2 diabetes mellitus with diabetic peripheral angiopathy without gangrene; F41.9 Anxiety disorder, unspecified; Z88.8 Allergy status to other drugs, medicaments and biological substances; Z88.2 Allergy status to sulfonamides; Z91.013 Allergy to seafood; Z91.040 Latex allergy status; Z91.041 Radiographic dye allergy status; Z79.4 Long term (current) use of insulin; Z68.32 Body mass index [BMI] 32.0-32.9, adult
CPT/HCPCS: 36415; 36416; 80053; 83605; 85025; 87040; 87070; 87077; 87205; J1650; J1815; J2543; J3370; J3490; J7050

== ENCOUNTER 2023-07-23 03:31 | Inpatient (IN) | payer SELFPAY ==
[2023-07-23] MEDS ORDERED: fentaNYL 50 mcg/mL 1 mL Vial ONE (04:20)
[2023-07-23 04:50] LABS: #Basophils 0.1 thou/uL (0.0-0.2); #Neutrophils 7.7 thou/uL (1.40-6.50); %Basophils 0.6 % (0.0-1.0); %Eosinophils 8.5 % (0.0-10.0); %Lymphocytes 17.4 % (21.0-51.0); %Neutrophils 65.1 % (42.0-75.0); Hematocrit 24.8 % (42.0-52.0); Hemoglobin 8.5 g/dL (14.0-18.0); Mean Corpuscular HGB CONC 34.3 g/dL (32.0-36.0); Mean Corpuscular Hemoglobin 25.5 pg (27.0-31.0); Mean Corpuscular Volume 74.5 fl (78.0-98.0); Mean Platelet Volume 9.7 fL (7.4-10.4); Platelet Count 251 10x3/uL (130-400); RBC Distribution Width 15.9 % (11.5-14.5); Red Blood Cell (RBC) Count 3.33 mill/uL (4.70-6.10); White Blood Cell (WBC) Count 11.8 10x3/uL (4.8-10.8)
[2023-07-23 05:18] LABS: ALT (SGPT) 14 U/L (8-55); AST (SGOT) 15 U/L (5-34); Albumin 4.1 g/dL (3.5-5.0); Alkaline Phosphatase 93 U/L (40-110); Anion Gap 27 mmol/L (10-20); Bilirubin, Total 0.8 mg/dL (0.2-1.2); Calc. Creatinine Clearance 0 mL/min (70-130); Calcium 7.6 mg/dL (7.8-10.44); Carbon Dioxide 13 mmol/L (22-29); Chloride 105 mmol/L (98-107); Estimated GFR 2; Globulin 3.7 g/dL (2.4-3.5); Glucose 156 mg/dL (70-105); Potassium 5.9 mmol/L (3.5-5.1); Protein, Total 7.8 g/dL (6.0-8.3); Sodium 139 mmol/L (136-145)
[2023-07-23 05:23] LABS: Troponin I 0.034 ng/mL (< 0.028)
[2023-07-23] MEDS ORDERED: Calcium Gluc 4.6 MEQ/10 ML (100 MG/ML) ONE (05:44)
[2023-07-23] MEDS ORDERED: Aspirin Chewable 81 MG TAB ONE (05:44)
[2023-07-23 06:03] LABS: BUN (Urea Nitrogen) 119 mg/dL (8.9-20.6)
[2023-07-23] MEDS ORDERED: Dextrose 50% Abboject 50 ML SYRINGE ONE (06:09)
[2023-07-23] MEDS ORDERED: Insulin Regular 300 UNITS/3 ML VIAL ONE (06:09)
[2023-07-23 06:43] LABS: Burr Cells MODERATE= 6-15 cells HPF (0-1); CellaVision Operator ID LAB.GE; Microcytosis SLIGHT = 6-15 cells HPF (0-5); Platelet Adequacy Comment Platelets Normal; Polychromasia SLIGHT = 2-3 cells HPF (0-2)
[2023-07-23] MEDS ORDERED: Calcium Carbonate 500 MG ChewTAB PO PRN (07:19)
[2023-07-23] MEDS ORDERED: Senokot S 8.6-50 MG TAB PO PRN (07:19)
[2023-07-23 07:39] LABS: HBSAg Index 0.32 S/CO (0-0.99); Hep B Core Total Ab Non-Reactive (NonReactive); Hep B Core Total Index 0.08 S/CO (0-0.79); Hep B Surf Ag Non-Reactive S/CO (NonReactive); Hep C IgG Ab Non-Reactive S/CO (NonReactive)
[2023-07-23 07:54] LABS: HBSAB Concentration 79.78 mIU/mL; Hep B Surf AB Reactive (NonReactive)
[2023-07-23 07:54] LABS: Troponin I 0.031 ng/mL (< 0.028)
[2023-07-23] MEDS ORDERED: HumaLOG 300 UNITS/3 ML VIAL SC PRN (07:58)
[2023-07-23] MEDS ORDERED: Dextrose 5% in Water 1,000 ML IV PRN (07:58)
[2023-07-23] MEDS ORDERED: Glucagon 1 MG/ML KIT IM PRN (07:58)
[2023-07-23] MEDS ORDERED: Dextrose 50% Abboject 50 ML SYRINGE SLOW IVP PRN (07:58)
[2023-07-23 09:09] LABS: Iron 134 ug/dL (65-175); Iron Binding Capacity, Total 161 mcg/dL (261-462)
[2023-07-23 09:28] LABS: Ferritin 1279.43 ng/mL (22-322)
[2023-07-23] MEDS ORDERED: Carvedilol 25 MG TAB PO SCH (10:08)
[2023-07-23] MEDS ORDERED: NIFEdipine XL 60 MG ER.TAB PO SCH ×2 (10:08→21:00)
[2023-07-23 10:38] LABS: Troponin I 0.031 ng/mL (< 0.028)
[2023-07-23 10:51] LABS: Vitamin D, 25 Hydroxy 15.3 ng/ml (> 30.0)
[2023-07-23 11:37] VITALS: BMI 29.6
[2023-07-23] MEDS ORDERED: Heparin 10,000 UNITS/ 10 ML VIAL ONE (11:46)
[2023-07-23] MEDS: Heparin 5,000 UNITS/ML VIAL SC SCH ×3 (13:44→20:28)
[2023-07-23] MEDS: Ondansetron PF 4 MG/2 ML Vial IVP PRN (13:45)
[2023-07-23] MEDS: hydrALAZINE 20 MG/ML VIAL SLOW IVP PRN ×2 (13:45→21:02)
[2023-07-23] MEDS: HYDROcodone/Acetaminophen 5/325 mg Tablet PO PRN (14:32)
[2023-07-23 15:47] LABS: Anion Gap 20 mmol/L (10-20); BUN (Urea Nitrogen) 52 mg/dL (8.9-20.6); Calc. Creatinine Clearance 12 mL/min (70-130); Calcium 8.9 mg/dL (7.8-10.44); Carbon Dioxide 21 mmol/L (22-29); Chloride 99 mmol/L (98-107); Estimated GFR 6; Glucose 108 mg/dL (70-105); Potassium 3.5 mmol/L (3.5-5.1); Sodium 136 mmol/L (136-145)
[2023-07-23] MEDS: Carvedilol 25 MG TAB PO SCH (20:12)
[2023-07-23] MEDS: Acetaminophen 325 MG TAB PO PRN (20:22)
[2023-07-24] MEDS: Ondansetron PF 4 MG/2 ML Vial IVP PRN (00:27)
[2023-07-24] MEDS: HYDROcodone/Acetaminophen 5/325 mg Tablet PO PRN (00:27)
[2023-07-24] MEDS ORDERED: Fioricet 325/50/40 mg Tablet PO SCH (01:15)
[2023-07-24] MEDS ORDERED: diphenhydrAMINE 25 MG CAP PO SCH ×2 (01:15→20:30)
[2023-07-24 05:41] LABS: #Basophils 0.1 thou/uL (0.0-0.2); #Eosinphils 0.7 thou/uL (0.0-0.7); #Monocytes 0.7 thou/uL (0.11-0.59); #Neutrophils 4.2 thou/uL (1.40-6.50); %Eosinophils 10.2 % (0.0-10.0); %Lymphocytes 18.4 % (21.0-51.0); %Monocytes 10.2 % (0.0-10.0); %Neutrophils 59.8 % (42.0-75.0); Hematocrit 24.5 % (42.0-52.0); Hemoglobin 8.4 g/dL (14.0-18.0); Mean Corpuscular HGB CONC 34.3 g/dL (32.0-36.0); Mean Corpuscular Volume 72.9 fl (78.0-98.0); Mean Platelet Volume 10.2 fL (7.4-10.4); Platelet Count 215 10x3/uL (130-400); RBC Distribution Width 15.6 % (11.5-14.5); Red Blood Cell (RBC) Count 3.36 mill/uL (4.70-6.10); White Blood Cell (WBC) Count 7.1 10x3/uL (4.8-10.8)
[2023-07-24 05:59] LABS: Hemoglobin A1c 6.1 % (4.0-6.0)
[2023-07-24 06:06] LABS: Anion Gap 21 mmol/L (10-20); BUN (Urea Nitrogen) 61 mg/dL (8.9-20.6); Calc. Creatinine Clearance 9 mL/min (70-130); Calcium 8.1 mg/dL (7.8-10.44); Carbon Dioxide 24 mmol/L (22-29); Cardiac Risk 4.1 (Less than 4.5); Chloride 99 mmol/L (98-107); Cholesterol 94 mg/dl (< 200 Desired); Estimated GFR 4; Glucose 98 mg/dL (70-105); HDL Cholesterol 23 mg/dL (>60 Neg Risk); LDL Cholesterol, Calculated 52 mg/dL; Potassium 4.5 mmol/L (3.5-5.1); Sodium 139 mmol/L (136-145); Triglycerides 93 mg/dL (Less than 150)
[2023-07-24 06:29] LABS: CellaVision Operator ID lab.abc; Microcytosis SLIGHT = 6-15 cells HPF (0-5); Platelet Adequacy Comment Platelets Normal; Polychromasia SLIGHT = 2-3 cells HPF (0-2); Target Cells SLIGHT = 2-5 cells HPF (0-1)
[2023-07-24] MEDS ORDERED: Heparin 10,000 UNITS/ 10 ML VIAL ONE (10:43)
[2023-07-24] MEDS: Heparin 5,000 UNITS/ML VIAL SC SCH ×3 (11:28→20:24)
[2023-07-24] MEDS: Aspirin 81 mg Enteric Coated Tablet PO SCH (11:28)
[2023-07-24] MEDS ORDERED: Epoetin (ESRD) 10,000 UNITS/ML VIAL SC SCH (12:00)
[2023-07-24] MEDS: Acetaminophen 325 MG TAB PO PRN (16:20)
[2023-07-24] MEDS: Carvedilol 25 MG TAB PO SCH ×2 (17:34→20:24)
[2023-07-24] MEDS ORDERED: clonazePAM 1 MG TAB PO PRN (18:55)
[2023-07-24] MEDS: Metoclopramide HCl 10 MG TAB PO SCH (20:24)
[2023-07-24] MEDS ORDERED: Atorvastatin Calcium 40 MG TAB PO SCH (21:00)
[2023-07-25 05:03] LABS: Anion Gap 19 mmol/L (10-20); BUN (Urea Nitrogen) 50 mg/dL (8.9-20.6); Calc. Creatinine Clearance 12 mL/min (70-130); Calcium 8.2 mg/dL (7.8-10.44); Carbon Dioxide 25 mmol/L (22-29); Chloride 100 mmol/L (98-107); Estimated GFR 5; Glucose 142 mg/dL (70-105); Potassium 4.1 mmol/L (3.5-5.1); Sodium 140 mmol/L (136-145)
[2023-07-25] MEDS: Heparin 5,000 UNITS/ML VIAL SC SCH ×2 (09:49→14:14)
[2023-07-25] MEDS: Aspirin 81 mg Enteric Coated Tablet PO SCH (09:49)
[2023-07-25] MEDS: Metoclopramide HCl 10 MG TAB PO SCH (09:49)
[2023-07-25] MEDS: Carvedilol 25 MG TAB PO SCH ×2 (09:50→12:44)
[2023-07-25 12:47] VITALS: TEMP 98.9
[2023-07-25] MEDS ORDERED: NIFEdipine XL 60 MG ER.TAB PO SCH (14:00)
[2023-07-25 14:12] VITALS: BP 159/81
[2023-07-26] MEDS ORDERED: NIFEdipine XL 60 MG ER.TAB PO SCH (04:00)
== END 2023-07-25 14:50 | disposition home or self-care (01) | DRG 640 ==
LOC: ERS 03:31 → 2SW 06:09 → OBSVTOIN 07:58
PROVIDERS: ADMIT Internal Medicine; ATTEND Internal Medicine
DX: E87.70 Fluid overload, unspecified (principal); I50.33 Acute on chronic diastolic (congestive) heart failure; N18.6 End stage renal disease; I13.2 Hypertensive heart and chronic kidney disease with heart failure and with stage 5 chronic kidney disease, or end stage renal disease; I24.89 Other forms of acute ischemic heart disease; N25.81 Secondary hyperparathyroidism of renal origin; E87.21 Acute metabolic acidosis; E78.5 Hyperlipidemia, unspecified; E11.22 Type 2 diabetes mellitus with diabetic chronic kidney disease; E87.5 Hyperkalemia; D63.1 Anemia in chronic kidney disease; E83.51 Hypocalcemia; K21.9 Gastro-esophageal reflux disease without esophagitis; Z88.5 Allergy status to narcotic agent; Z88.6 Allergy status to analgesic agent; Z98.890 Other specified postprocedural states; Z91.040 Latex allergy status; Z99.2 Dependence on renal dialysis; Z91.041 Radiographic dye allergy status; Z88.0 Allergy status to penicillin; Z79.4 Long term (current) use of insulin; Z79.899 Other long term (current) drug therapy; Z91.158 Patient's noncompliance with renal dialysis for other reason
CPT/HCPCS: 36415; 36416; 71045; 80048; 80053; 80061; 82306; 82728; 83036; 83540; 83550; 83880; 84443; 84484; 85025; 86704; 93005; 93306; 96374; 96375; J0360; J0612; J1644; J1815; J2405; J3010; J7999; Q4081

== ENCOUNTER 2024-06-03 05:29 | Observation (INO) | payer MEDICARE, SELFPAY ==
[2024-06-03] MEDS ORDERED: fentaNYL 50 mcg/mL 1 mL Vial ONE (06:02)
[2024-06-03] MEDS ORDERED: Labetalol HCl 100 MG/20 ML VIAL ONE (06:02)
[2024-06-03 06:10] LABS: #Basophils 0.06 10x3/uL (0.0-0.2); %Basophils 0.5 % (0.0-1.0); %Eosinophils 9.4 % (0.0-10.0); %Lymphocytes 12.2 % (21.0-51.0); %Monocytes 9.2 % (0.0-10.0); Hematocrit 28.5 % (42.0-52.0); Hemoglobin 10.1 g/dL (14.0-18.0); Mean Corpuscular HGB CONC 35.4 g/dL (32.0-36.0); Mean Corpuscular Hemoglobin 27.7 pg (27.0-31.0); Mean Corpuscular Volume 78.3 fL (78.0-98.0); Mean Platelet Volume 10.1 fL (7.4-10.4); Platelet Count 195 10x3/uL (130-400); RBC Distribution Width 16.1 % (11.5-14.5); Red Blood Cell (RBC) Count 3.64 mill/uL (4.70-6.10)
[2024-06-03] MEDS ORDERED: diphenhydrAMINE 50 MG/ML VIAL ONE (06:19)
[2024-06-03] MEDS ORDERED: methylPREDNISolone Sod Succ 40 MG VIAL ONE (06:19)
[2024-06-03 06:20] LABS: INR-International Normal Ratio 1.1; Prothrombin Time 13.8 sec (12.0-14.7)
[2024-06-03 06:38] LABS: ALT (SGPT) 21 U/L (8-55); AST (SGOT) 21 U/L (5-34); Albumin 3.7 g/dL (3.5-5.0); Alkaline Phosphatase 73 U/L (40-110); Anion Gap 28 mmol/L (10-20); BUN (Urea Nitrogen) 103 mg/dL (8.9-20.6); Bilirubin, Total 0.8 mg/dL (0.2-1.2); Calc. Creatinine Clearance 0 mL/min (70-130); Calcium 8.2 mg/dL (7.8-10.44); Carbon Dioxide 18 mmol/L (22-29); Chloride 101 mmol/L (98-107); Estimated GFR 2; Globulin 4.4 g/dL (2.4-3.5); Glucose 120 mg/dL (70-105); Potassium 5.3 mmol/L (3.5-5.1); Protein, Total 8.1 g/dL (6.0-8.3); Sodium 142 mmol/L (136-145)
[2024-06-03 06:49] LABS: Troponin I 0.077 ng/mL (< 0.028)
[2024-06-03] MEDS ORDERED: Iopamidol-370 76% 500 ML MDV (1 ML CHARGE) ONE (06:50)
[2024-06-03] MEDS ORDERED: Heparin 10,000 UNITS/ 10 ML VIAL ONE (08:27)
[2024-06-03] MEDS ORDERED: Ondansetron PF 4 MG/2 ML Vial ONE (08:31)
[2024-06-03] MEDS ORDERED: Nitroglycerin 2% Ointment 1 INCH/1 GM Packet ONE (08:45)
[2024-06-03] MEDS ORDERED: hydrALAZINE 20 MG/ML VIAL ONE (08:53)
[2024-06-03] MEDS ORDERED: Bisacodyl 5 MG TAB PO PRN (09:24)
[2024-06-03] MEDS ORDERED: Ondansetron PF 4 MG/2 ML Vial IVP PRN (09:24)
[2024-06-03] MEDS ORDERED: Glucagon 1 MG/ML KIT IM PRN (10:17)
[2024-06-03] MEDS ORDERED: Dextrose 50% Abboject 50 ML SYRINGE SLOW IVP PRN (10:17)
[2024-06-03] MEDS ORDERED: Dextrose 5% in Water 1,000 ML IV PRN (10:17)
[2024-06-03 10:33] LABS: Troponin I 0.077 ng/mL (< 0.028)
[2024-06-03 11:07] VITALS: BMI 34.2
[2024-06-03] MEDS: Acetaminophen 325 MG TAB PO PRN (16:08)
[2024-06-03] MEDS: Heparin 5,000 UNITS/ML VIAL SC SCH (16:09)
[2024-06-03] MEDS: Minoxidil 2.5 MG TAB PO SCH (16:09)
[2024-06-03] MEDS: Insulin Lispro 100 UNIT/ML 10 ML VIAL SC PRN (18:28)
[2024-06-04 03:56] LABS: #Basophils 0.06 10x3/uL (0.0-0.2); %Basophils 0.6 % (0.0-1.0); %Lymphocytes 15.3 % (21.0-51.0); %Monocytes 10.8 % (0.0-10.0); %Neutrophils 67.8 % (42.0-75.0); Hemoglobin 9.9 g/dL (14.0-18.0); Mean Corpuscular HGB CONC 35.4 g/dL (32.0-36.0); Mean Corpuscular Hemoglobin 27.3 pg (27.0-31.0); Mean Corpuscular Volume 77.1 fL (78.0-98.0); Mean Platelet Volume 10.3 fL (7.4-10.4); Platelet Count 184 10x3/uL (130-400); RBC Distribution Width 15.9 % (11.5-14.5); Red Blood Cell (RBC) Count 3.63 mill/uL (4.70-6.10)
[2024-06-04 04:17] LABS: Anion Gap 21 mmol/L (10-20); BUN (Urea Nitrogen) 66 mg/dL (8.9-20.6); Calc. Creatinine Clearance 9 mL/min (70-130); Calcium 8.2 mg/dL (7.8-10.44); Carbon Dioxide 22 mmol/L (22-29); Chloride 103 mmol/L (98-107); Estimated GFR 4; Glucose 136 mg/dL (70-105); Sodium 141 mmol/L (136-145)
[2024-06-04] MEDS: Minoxidil 2.5 MG TAB PO SCH (07:58)
[2024-06-04 11:55] VITALS: BP 160/92; TEMP 98.6
== END 2024-06-04 12:23 | disposition home or self-care (01) ==
LOC: ERS 05:29 → ERHOLD 09:07 → INTOOBSV 09:07 → 2SW 15:17
PROVIDERS: ADMIT Internal Medicine; ATTEND Internal Medicine
DX: R20.0 Anesthesia of skin (principal); I12.0 Hypertensive chronic kidney disease with stage 5 chronic kidney disease or end stage renal disease; N18.6 End stage renal disease; E11.22 Type 2 diabetes mellitus with diabetic chronic kidney disease; D63.1 Anemia in chronic kidney disease; Z99.2 Dependence on renal dialysis; I16.0 Hypertensive urgency; H53.8 Other visual disturbances; E78.5 Hyperlipidemia, unspecified; K21.9 Gastro-esophageal reflux disease without esophagitis; R06.02 Shortness of breath; E87.21 Acute metabolic acidosis; E87.70 Fluid overload, unspecified; Z91.013 Allergy to seafood; Z91.041 Radiographic dye allergy status; Z91.040 Latex allergy status; Z88.5 Allergy status to narcotic agent; Z79.82 Long term (current) use of aspirin; Z88.2 Allergy status to sulfonamides; Z79.899 Other long term (current) drug therapy
CPT/HCPCS: 70450; 70496; 70498; 71045; 80048; 80053; 82962 ×2; 84484 ×2; 85025 ×2; 85610; 85730; 93005; 96374; 96375; 96376; 99285; J0360; J1200; J1644 ×3; J1815; J2405; J2919; J3010; Q9967; 36415; 36416; 90935; G0257; G0378